=== PATIENT | male | born 1945 | race Caucasian/White ===

== ENCOUNTER → 2018-08-14 11:50 | Outpatient (CLI) | payer MEDICARE, OTHER, SELFPAY ==
--- NOTE | 2018-08-14 | DI.MRI.S_ITS ---
PROCEDURE: MR LUMBAR SPINE WO CON INDICATIONS: SPINAL STENOSIS TECHNIQUE: Noncontrast sagittal T1 spin echo and T2 fast echo, sagittal STIR, axial T1 and T2 fast spin echo through the lumbar spine. In cases with scoliosis, additional coronal T2 fast spin echo may be performed. COMPARISON: [facility], MR, L-SPINE WITHOUT CONTRAST, 06/21/2014, 10:47. [facility], CR, XR LUMBAR SPINE 2 OR 3 VIEWS, 08/05/2018, 13:12. FINDINGS: Image quality: Excellent. Alignment and Curvature: 5 lumbar type vertebral bodies are present by plain film. There is mild grade 1 retrolisthesis of L2 on L3. There is mild grade 1 anterolisthesis of L4 on L5. There is mild rightward curvature of the thoracolumbar junction and mild leftward curvature of the lower lumbar spine. Bone Marrow: Marrow is of normal overall signal. No acute vertebral body compression fractures. Spinal Cord: Conus medullaris terminates at the upper L1 level. Visualized cord demonstrates normal signal and size. Paraspinous Soft Tissues: No paravertebral masses. L1-L2: Mild disc desiccation and diffuse disc bulge. Mild facet hypertrophy bilaterally. Mild canal stenosis. Mild bilateral foraminal stenosis. L2-L3: Mild disc height loss and desiccation. Mild diffuse disc bulge. Mild bilateral facet hypertrophy. Mild canal stenosis. Mild bilateral foraminal stenosis. No change. L3-L4: Mild disc height loss and desiccation. Mild diffuse disc bulge. Congenital canal stenosis. Mild facet and ligamentum flavum hypertrophy. There is increased, moderate to severe canal stenosis. There is no change in mild bilateral foraminal stenosis. L4-L5: Mild disc height loss and desiccation. Mild diffuse disc bulge. Moderate facet hypertrophy bilaterally. Severe canal stenosis and mild bilateral foraminal stenosis is unchanged. L5-S1: Mild disc height loss and desiccation. Mild diffuse disc bulge. Bilateral facet hypertrophy. Epidural lipomatosis. Mild canal stenosis. Moderate foraminal stenosis bilaterally. No change. IMPRESSION: 1. Multilevel degenerative disc and facet disease, as well as ligamentum flavum hypertrophy. 2. Multilevel canal stenoses, worst at L4-L5, where there is severe canal stenosis. There is moderate to severe L3-L4 canal stenosis. 3. Multilevel foraminal stenoses, worst at L5-S1 bilaterally where there are moderate bilateral foraminal stenoses present. Dictated by: Steve Urbina M.D. on 08/14/2018 at 13:53 Approved by: Steve Urbina M.D. on 08/14/2018 at 14:20
== END ==
PROVIDERS: Family Provider Family Medicine; PCP Student in an Organized Health Care Education/Training Program; Visit Provider Orthopaedic Surgery
DX: M48.061 Spinal stenosis, lumbar region without neurogenic claudication (principal); M48.07 Spinal stenosis, lumbosacral region; M51.36 Other intervertebral disc degeneration, lumbar region; M51.37 Other intervertebral disc degeneration, lumbosacral region; M54.5 Low back pain
CPT/HCPCS: 72148

== ENCOUNTER → 2018-11-11 14:43 | Outpatient (CLI) | payer MEDICARE, OTHER, SELFPAY | PROVIDERS: PCP Student in an Organized Health Care Education/Training Program; Visit Provider Student in an Organized Health Care Education/Training Program | DX: E66.09 Other obesity due to excess calories (principal) | CPT/HCPCS: 36415; 83036 ==

== ENCOUNTER 2018-12-17 07:16 | Inpatient (IN) | payer MEDICARE, OTHER, SELFPAY ==
[2018-12-11 14:04] VITALS: BMI 34.9
[2018-12-17] VITALS (20 sets, daily range): BP systolic 93–161; BP diastolic 44–77; PULSE 85–109; RESP 13–98; TEMP 36.3–37; O2SAT 90–100; BMI 34.9
[2018-12-17] MEDS: LACTATED RINGERS 1,000 ML 42 ML IV ×2 (08:10→11:09)
--- NOTE | 2018-12-17 08:10 | PM.PREOP ---
Pre-operative Note Interval Note History & Physical reviewed/Exam performed by Physician: Yes Changes to H&P: No
[2018-12-17] MEDS: ALBUTEROL/IPRATROPIUM 3 ML AMPUL INH ×2 (08:14→13:00)
[2018-12-17] MEDS: CEFAZOLIN 2 GM/100 ML FROZ.PIGGY IV ×2 (08:40→17:38)
--- NOTE | 2018-12-17 09:20 | SUR.OPER ---
Prone on spine table, head in foam head support, padded chest and pelvic supports, gel pad at knees, lower legs supported by pillows; nipples, genitalia and toes free of pressure, arms secured on foam padded arm boards at <90 degrees abduction. Tape over blanket at thigh secured to table.
[2018-12-17] MEDS: BUPIVACAINE 0.25% W/ EPI VIAL 50 ML INJ (09:36)
[2018-12-17] MEDS: BUPIVACAINE LIPOSOME 266 MG/20 ML VIAL INJ (09:37)
--- NOTE | 2018-12-17 12:20 | P.OP_ITS ---
Operative Date/Time/Diagnoses Date of procedure: 12/17/18 Time of procedure: 09:18 Pre-op diagnosis: 1. L4-5, L5-S1 spinal stenosis 2. L4-5 history of laminectomy with epidural scarring 3. L4-5, L5-S1 spondylosis with radiculopathy Post-op diagnosis: same Procedure & Clinicians Procedure: 1. L4-5, L5-S1 Postero-lateral and posterior interbody fusion 2. L4-5, L5-S1 interbody cage placement. 3. L4-5, L5-S1 decompressive laminectomy with bilateral facetecomies 4. L4-5, L5-S1 Posterior segmental instrumentation 5. [place] of bone marrow from iliac crest 6. Utilization of microsurgical technique and operating microscope Same procedure as scheduled: No Indications: Patient has been having chronic back pain and worsening lumbar radiculopathy. Patient failed multiple conservative management with worsening pain weakness and numbness in her lower extremity. Patient has been having difficulty performing activity of daily living. After discussing risks benefits of treatment options, patient elected proceed with surgery. Surgeon: Lissy Calzada Deoiling Machine Operator: Peg Pineda Click Yes if Unassisted: No Anesthesia Type: General Operative Notes Closure Type: primary Specimen(s): none sent Prosthetic devices, grafts, tissues, transplants, or devices: Globus revolve screws, Rise cages Applied: catheter Estimated Blood Loss (mL): 100 Blood products transfused: none Procedure in detail: Patient was seen in the preoperative area. Risks and benefits of the surgery was discussed with the patient. Informed consent was obtained from the patient and placed in the chart. Surgical site was marked. Patient was taken to the operative room. General anesthesia was administered. Prophylactic antibiotic was given to the patient less than 30 min before the incision was made. Patient was placed into a prone position on the Oscar table. Patient's back was then prepped and draped in the sterile fashion. Time- out was performed at this time. Using AP and lateral C-arm imaging the interval between L4-S1 was identified and marked on patient's back. A 2 inch incision 2 in from midline was made on the Right side first. The fascia was incised in line with skin incision. Globus MARS retractors was placed inside the incision and docked onto the L4 and L5 lamina. Using microsurgical technique and operating microscope, a L4 and L5 laminectomy and L4-5 L5-S1 facetectomy was performed using a Kerrison rongeur. During the process of decompression more than 75% of bilateral L4-5 L5-S1 facets were removed in order to decompress the spinal canal and the lateral recess. The L4-5 L5-S1 level was grossly unstable after the decompression was completed and requiring the fusion procedure. The disc space at L4-5, L5-S1 was identified. And a total diskectomy was performed at L4-5, L5-S1 level. The endplates were decorticated using a rasp and shaver. The total diskectomy and decortication was performed at L4-5, L5-S1 level in order to to accomplish a L4- 5, L5-S1 fusion. The local bone from the laminectomy and facetectomy was saved for local bone grafting. After the total diskectomy and decortication was completed, [place] [employer] bone graft material was combined with local bone that was harvested earlier. At this time, a separate skin is incision was made over the iliac crest. A Jamshidi needle was inserted into the iliac crest through a separate skin incision. 5 cc of bone marrow aspiration was obtained through the separate skin incision using a Jamshidi needle from the iliac crest. The bone marrow aspiration was combined with local bone and the [employer]4 bone grafting material. The bone grafting material was placed into the L4-5, L5-S1 interbody space along with two cages, one expandable cage at each level. The cages were expanded to their maximum height using the torque limiting s crewdriver. At this time a mirror image incision was made on the left side. The fascia was incised in line with the skin incision. Globus MARS retractor was inserted and docked onto the L4-5, L5-S1 posterolateral gutter. Using the power drill, posterior-lateral decortication was performed at L4-5, L5-S1 level until bleeding cortical bone was identified. The remaining bone grafting material was placed into the L4-5 L5-S1 posterior lateral gutter he order to accomplish posterolateral fusion at the L4-5 L5-S1 levels. Using the double C-arm technique, pedicle screws were placed into the L4, L5, S1 pedicles bilaterally. This was done by placing the Jamshidi needle into the pedicles, then placing the guidewires over the Jamshidi needle, and finally placing the cannulated screws over the guidewires bilaterally. After the pedicle screws were placed, 2 titanium rods was locked into the heads of the pedicle screws using locking caps and torque limiting screwdriver. Total 6 pedicles screws were placed. After all the hardware was placed, and confirmed with AP and lateral C-arm imaging, the wound was then irrigated with sterile normal saline and packed with Ray-Elvin gauze for 3 min to accomplish hemostasis. After the gauze was removed the deep fascia was closed with #1 Vicryl suture. The subcutaneous layer was closed with 2-0 Vicryl. The skin was closed with skin cassie. Patient tolerated the procedure well. There were no complications. Complications: none Condition: stable Disposition: PACU Plan for aftercare: Admit to inpatient hospital
--- NOTE | 2018-12-17 12:37 | DI.RAD.S_ITS ---
PROCEDURE: XR LUMBAR SPINE 2-3V INDICATIONS: L4-5, L5-S1 TLIF TECHNIQUE: 2 views of the lumbar spine were acquired. COMPARISON: [facility], , -SPINE 2-3 VIEWS, 06/02/2014, 12:24. FINDINGS: Bones: 5 csk-lhd-jamalfa vertebrae are present. There is normal bony alignment established after discectomy and posterior fixation with transverse pedicle screws and vertical fixation rods bilaterally crossing from L4-S1. Interbody disc prosthesis devices are present at each of the 2 intervening levels. No vertebral body compression fractures. No suspicious bony lesions. Soft tissues: Overlying bowel gas pattern is normal. No suspicious soft tissue calcifications. IMPRESSION: Normal alignment established after L4-5 and L5-S1 posterior fusion with interbody disc cage prosthesis devices placed at these 2 levels. Dictated by: Alex More M.D. on 12/17/2018 at 12:55 Approved by: Alex More M.D. on 12/17/2018 at 12:56
[2018-12-17] MEDS: HYDROMORPHONE 2 MG INJ 0.5 MG IV (13:18)
--- NOTE | 2018-12-17 14:05 | SUR.PHASEI ---
Pt experiencing mild expiratory wheezing heard over upper lung casiano with auscultation. Pt is not in distress, breathing is unlabored, even and regular. O2 [id number]% on 4 L NC. Pt to transfer to room 229. Spoke to Dr Engle prior to transfer to update on respiratory status and assessment. Orders for respiratory therapy consult and ok to transfer pt.
--- NOTE | 2018-12-17 14:20 | SUR.PHASEI ---
Pt transferred to room 229 via bed with all belongings. Last vital signs stable. Report given to OMER Quinn prior to transfer. Cheyenne at bedside upon arrival to 229. Assessed pt's dressing and overall status with Cheyenne at bedside.
[2018-12-17] MEDS: SODIUM CHLORIDE 0.9% 1,000 ML 100 ML IV (15:17)
--- NOTE | 2018-12-17 15:18 | PC.NURSE ---
1415 Pt arrived via bed from PACU. Pt awake, alert, oriented X4. Diaz in place. SL to bilat hands. Drsg to back cdI. SCDs footies on. Pt able to do ankle waves. at bedside, vs wnl except ht rate 100. lungs clear. 1430 IVF NS @ 100 hung. Pt denies pain.
--- NOTE | 2018-12-17 16:02 | PT.IIE ---
Current Diagnoses Spondylolisthesis, lumbar region (12/17/18) Other spondylosis with radiculopathy, lumbar region (12/17/18) Spinal stenosis, lumbar region with neurogenic claudication (12/17/18) Postlaminectomy syndrome, not elsewhere classified (12/17/18) Surgery Performed Operation Date: 12/17/18 08:45 Actual Procedures p L4-5,L5-S1 TLIF w/Posterior Instru. - Lissy Calzada MD Surgical History (Last Updated 12/11/18 @ 14:25 by Radha Kelsey RN) H/O vasectomy (Acute) History of nasal surgery (Acute) Hx of tonsillectomy (Acute) Hx of appendectomy (Resolved) Hx of colonoscopy with polypectomy (Resolved 01/2013) Hx of rotator cuff surgery (Resolved ~2004) Hx of sinus surgery (Resolved) Status post cholecystectomy (09/30/13) Medical History (Last Updated 12/11/18 @ 14:31 by Radha Kelsey RN) ASD (atrial septal defect) (Acute) Compression fracture of L1 lumbar vertebra (Acute 09/12/18) Easy bruisability (Acute) Former smoker (Acute) HTN (hypertension) (Acute) Pneumonia (Acute) Allergic rhinitis (Chronic) Asthma (Chronic) Diabetes (Chronic) GERD (gastroesophageal reflux disease) (Chronic) Hypertension (Chronic) Recurrent sinusitis (Chronic) Shoulder pain (Chronic ~07/2017) Colon polyps (Resolved ~01/2013) Renal cyst (Resolved) Physical Therapy Inpatient Evaluation/Re-Eval M1 PT/OT-IP Prior Functional Status Start: 12/17/18 17:32 Freq: NEEDED Status: Active Protocol: Document 12/17/18 16:02 AB (Rec: 12/17/18 17:45 AB [id number]) Medical Review Prior Functional Status Medical History Reviewed Yes Communication able to make needs known Mobility and Gait pt stated that he is independent with all mobilities and ambulation without AD Social History Household Members spouse Living Arrangements House Number of Floors (Floors) One Floor Number of Stairs To Enter/Railing? 3 steps to enter with R rail ascending Home Environment Standard Height Toilet Walk in Shower Built-In Shower Seat Home Equipment Front Wheel Walker Hand Held Shower Employment Status Retired M2 PT-IP Current Condition Start: 12/17/18 17:32 Freq: NEEDED Status: Active Protocol: Document 12/17/18 16:02 AB (Rec: 12/17/18 17:45 AB [id number]) Physical Therapy Current Condition Current Condition Evaluation Date 12/17/18 Treatment Diagnosis s/p L4-5, L5S1 post-lat/hydrologic modeler fusion/lami; difficulty in walking Onset Date 12/17/18 Precautions Lumbar Precautions Log Roll No Twisting Limit Bending Lifting Restriction of 10 lbs Gait Belt above Incisional Area Other Precautions O2 sat: 95-99% currently uses 2 1/2L/min; at room air: O2 sat goes down to 87% M3 PT-IP Subjective Start: 12/17/18 17:32 Freq: NEEDED Status: Active Protocol: Document 12/17/18 16:02 AB (Rec: 12/17/18 17:45 AB [id number]) Subjective Physical Therapy Visit Type Type Initial Evaluation Visit Start Time 16:02 Visit Stop Time 17:08 Total Visit Minutes 66 Number of VASCULAR NEUROLOGIST Visits 0 Physical Therapy Visit Comments Patient Comments I want go get out of bed Patient Goals to go home Therapy Pain Assessment Pain When Pain Assessed At Rest Pain Present Pain Present Pain Reported Location Lower Back Intensity 4 Scale Used Numeric (1 - 10) Pain Management Techniques Apply Cold Re-positioning Timing of Activity with Medications M4 PT-IP Mobility and Gait Start: 12/17/18 17:32 Freq: NEEDED Status: Active Protocol: Document 12/17/18 16:02 AB (Rec: 12/17/18 17:45 AB [id number]) PT-Bed Mobility Assessment Rolling Type of Rolling Log Rolling Level of Assist Maximal Assistance 1 Person Assistance Supine to Sit Supine to Sit Maximum Assistance Total Assistance Scooting Scooting to Edge of Bed Maximum Assistance PT-Transfer Assessment Sit to and From Stand Sit to and from Stand Moderate Assistance 1 Person Assistance Equipment Transfer Assistive Device Bed Rail Front Wheeled Walker Orthotic/Prosthetic Devices or Brace: No Transfers Transfer Destination Chair Transfer Technique pt ambulated using FWW Transfer Ability Level of Assist Moderate Assistance Gait Assessment Gait Gait Assistance Required: Moderate Assistance Distance (Feet) 5 Able to Maintain Weight Bearing Status Yes During Gait Assistive Devices Assistive Device Gait Belt Front Wheeled Walker Orthotic/Prosthetic Devices or Brace: No Gait Deviations General Gait Pattern Antalgic Decreased Stride Length Decreased Feet Clearance Factors Limiting Gait Function Factors Limiting Gait Function Decreased Activity Tolerance Decreased Strength Limited Range of Motion Pain Poor Balance Poor Safety Awareness Comments Gait Comments pt complete ambulation using FWW 5 ft forward and then 5 ft backwards mod A and cues. PT-Balance Assessment Sitting Balance and Reactions Static Sitting Balance Ability Good Dynamic Sitting Balance Ability Good Standing Balance and Reactions Static Standing Balance Ability Fair Dynamic Standing Balance Ability Fair Device Used FWW M5 PT-IP Objective Assessments Start: 12/17/18 17:32 Freq: NEEDED Status: Active Protocol: Document 12/17/18 16:02 AB (Rec: 12/17/18 17:45 AB [id number]) Orientation Orientation/Cognition Level of Alertness Alert Orientation Name Age Birthday Month Date Year Day of Week Place Situation Language Function Ability Hard of Hearing Safety Awareness Decreased Safety Awareness Memory Description Short Term Impaired Gross Range of Motion Lower Extremity ROM Assessment Within Functional Limits Strength Lower Extremity Strength Assessment Right Impaired Knee 3+/5 Coordination Assessment Gross Coordination Gross Coordination WNL Sensation Assessment Sensation Gross Sensation WNL Muscle Tone Muscle Tone WNL Yes M6 PT-IP Treatment Start: 12/17/18 17:32 Freq: NEEDED Status: Active Protocol: Document 12/17/18 16:02 AB (Rec: 12/17/18 17:45 AB [id number]) Physical Therapy Treatment Education Education Provided Precautions Weight Bearing Status Post-Op Packet Safety M7 PT-IP Assessment and Plan Start: 12/17/18 17:32 Freq: NEEDED Status: Active Protocol: Document 12/17/18 16:02 AB (Rec: 12/17/18 17:45 AB [id number]) PT Summary Assessment and Plan Potential Rehabilitation Potential Good Status of Condition at Evaluation Stable Summary Impairments Pain ROM Strength Balance Tone Cognition Bed Mobility Transfers Gait Activity Tolerance Assessment Summary pt requiring max A with bed mobility and mod A with transfers/ambulation. pt plans to go home with spouse to assist him. caregiver training will be conducted and stair climbing training as well prior to d/c home when appropriate. Goals Bed Mobility Goal Standby Assistance Transfer Goal Standby Assistance Front Wheeled Walker Gait Goal Standby Assistance Front Wheel Walker Gait Distance 200 Days to Meet Goals 5 Frequency of Treatment Frequency Of Treatment Twice a Day Treatment Plan Physical Therapy Treatment Plan Bed Mobility Training Transfer Training Gait Training Therapeutic Exercise Balance Retraining Post Op Education Discharge Planning Hot or Cold Pack Neuromuscular Re-ed Coordination Retraining Manual Therapy Other Recommendations and Next Treatment caregiver training, bed Focus mobility, ambulation, stair climbing Recommendations To Nursing Amount of Assist Needed 1 Person Assist Discharge Recommendations PT Discharge Recommendations Home with Assistance
--- NOTE | 2018-12-17 16:59 | PC.NURSE ---
Addendum entered by Yolanda Guan R.N. 12/17/18 22:43: Pt up in room w/o incidence. Dsg CDI. IVF continue a per orders. Dilaudid po for discomfort at 2100 w/good relief. HS CBG = 148, no coverage required. Stable post op course. Continue w/plan of care. Original Note: Pt sitting in chair. Denies discomfort at thsit time. Lungs diminished at bases, SpO2 95% RA. Dsg to back CDI, IV NS infusing @ 100cc/hr via pump w/o incidense. IV site left hand intact/patent. Call light w/in reach, chair alarm on for pt safety.
[2018-12-17] MEDS: LISINOPRIL 20 MG TABLET 40 MG PO (20:47)
[2018-12-17] MEDS: SENNOSIDES 8.6 MG TABLET 17.2 MG PO (20:47)
[2018-12-17] MEDS: DOCUSATE 100 MG CAPSULE PO (20:47)
[2018-12-17] MEDS: METFORMIN HCL 500 MG TABLET 1000 MG PO (20:48)
[2018-12-17] MEDS: HYDROMORPHONE 2 MG TABLET 4 MG PO (21:07)
[2018-12-18] MEDS: CEFAZOLIN 2 GM/100 ML FROZ.PIGGY IV (01:08)
[2018-12-18] MEDS: hydrOXYzine pamoate 25 MG CAPSULE PO ×2 (01:25→07:55)
[2018-12-18] MEDS: SODIUM CHLORIDE 0.9% 1,000 ML 100 ML IV (02:38)
--- NOTE | 2018-12-18 02:40 | PC.NURSE ---
NOC SHIFT AGITATION/SHAKING: Around 0115 this RN called to patient room to assist patient in changing of positions. Patient stating I just need to get up. Patient transferred from bed to chair with SBA for Drain/IV pump assistance. Patient denied pain but seemed very agitated and bothered. Patient hands shaking uncontrollably, patient stated that he sometimes does this at home. Patient's blood sugar checked with result of 117. Patient stated that he didn't eat much dinner because he didn't like the food. Patient offered egg salad sandwich which patient accepted and ate quickly. Patient stated that he didn't realize he had been so hungry. Patient also given vistaril at this time to help with the tense feeling he had. Patient had complained about muñoz catheter and this RN offered to remove catheter if patient wished. Patient decided he wanted to keep catheter in till safety trainer so he wouldn't have to get up to void this night. Patient rested in chair for 45 minutes and called this RN to help patient return to bed per patient request. Patient stating that he felt better and wanted to lie down. Patient now resting comfortably in bed at this time. Patient's at bedside. No acute distress, Respirations even and unlabored. Will continue to monitor.
[2018-12-18] MEDS: HYDROMORPHONE 2 MG TABLET 4 MG PO ×2 (03:08→07:55)
[2018-12-18 04:09] VITALS: BP 133/50; PULSE 112; RESP 16; TEMP 36.9; O2SAT 97
--- NOTE | 2018-12-18 04:53 | PC.NURSE ---
Patient moved to [place] after bring found standing up in room without calling for assistance. Bed alarm on, chair alarm in room for when patient needs to be in chair. Patient not using call light states he does things himself usually.
[2018-12-18 05:48] LABS: Hematocrit 32.8 % (41-53); Hemoglobin 10.5 g/dL (13.5-17.5)
[2018-12-18] MEDS: PANTOPRAZOLE 20 MG TABLET PO (06:31)
--- NOTE | 2018-12-18 07:29 | PM.PNPO.1 ---
Exam Vital Signs (past 8 hours): - 12/17/18 23:55 12/18/18 04:09 Temperature 98.0 F 98.4 F Pulse Rate 99 H 112 H Respiratory Rate 16 16 Blood Pressure 133/50 L Pulse Oximetry 100 97 Oxygen Delivery Method Nasal Cannula Oxygen Flow Rate 2 Objective Labs Result Diagrams: 12/18/18 05:02 Labs: Laboratory Results - last 24 hr 12/18/18 05:02 Hgb 10.5 L Hct 32.8 L Assessment & Plan Post-op Postoperative Procedures Operation Date: 12/17/18 08:45 Actual Procedures Side Surgeon p L4-5,L5-S1 TLIF w/Posterior Instru. Lissy Calzada MD Quality VTE Deep Vein Thrombosis/Pulmonary Embolism Present on Admission: No
[2018-12-18] MEDS: METFORMIN HCL 500 MG TABLET 1000 MG PO (07:56)
[2018-12-18] MEDS: DOCUSATE 100 MG CAPSULE PO (07:56)
[2018-12-18] MEDS: INSULIN ASPART 100 UNIT/ML INSULN PEN SUBCUT ×3 (07:57→16:47)
[2018-12-18 08:00] VITALS: BP 121/86; PULSE 116; RESP 18; O2SAT 96
--- NOTE | 2018-12-18 08:41 | PC.NURSE ---
Addendum entered by Raul Garcia R.N. 12/18/18 15:28: report given to OMER Nunez who will follow up with ortho pa and request ABG per this RN and RT recommendation. of note, patient's right arm is swollen, erythemic and blanchable, slightly warm to touch. denies pain. states has been that way since end of when he fell. states the doctors have been aware of it, and no treatment or concerns noted. reported same to aguilar hernandez RN to follow up on. Original Note: Addendum entered by Raul Garcia R.N. 12/18/18 14:45: drsg changed to coversite x2. incisions w/ cassie dry and intact. no swelling or erythema. Original Note: Addendum entered by Raul Garcia R.N. 12/18/18 14:33: faxed msg to ortho PA in OR requesting return call r/t desat's w/ rest as low as 85%. RT aware. 1l/nc 95% at rest. awaiting response from PA Original Note: Addendum entered by Raul Garcia R.N. 12/18/18 12:56: sat 90% on ra. patient refuses oxygen. Original Note: PA NOTIFIED HR 117 AFTER TRANSF FROM BED TO RECLINER WITH WHEEZES AND EXERT. SOB. RT CONSULT ORDERED.
--- NOTE | 2018-12-18 10:13 | CM.DANOTE ---
DCP: Case received, EMR reviewed and met with patient. Introduced self and role. DCP template completed with information currently available. Patient is a 73 year old male who admitted yesterday morning to the care of the surgical team. PCP: Dr. Dunn Payer: confirmed: Medicare/[employer]. Patient came to hospital for surgical procedure. Had Posteo-lateral interbody fusion. Patient's was also in room, her name is Elisha. Patient stated that he had his original surgery at [facility] a few years ago, but they had to go in and repair some bones. Patient has not yet been up with physical therapy, but he is hopeful to go home today. Lives with his spouse in [place]. He stated that he is independent at home, drives, and had not needed to use a walker. P: DCP to continue to follow. Will see how he does with physical therapy before going home. Radha Holliday RN/Branch Billing Payroll Clerk
--- NOTE | 2018-12-18 10:33 | PT.IPTN ---
Current Diagnoses Spondylolisthesis, lumbar region (12/17/18) Other spondylosis with radiculopathy, lumbar region (12/17/18) Spinal stenosis, lumbar region with neurogenic claudication (12/17/18) Postlaminectomy syndrome, not elsewhere classified (12/17/18) Surgery Performed Operation Date: 12/17/18 08:45 Actual Procedures p L4-5,L5-S1 TLIF w/Posterior Instru. - Lissy Calzada MD Physical Therapy Treatment Note M2 PT-IP Current Condition Start: 12/17/18 17:32 Freq: NEEDED Status: Active Protocol: Document 12/17/18 16:02 AB (Rec: 12/17/18 17:45 AB [id number]) Physical Therapy Current Condition Current Condition Evaluation Date 12/17/18 Treatment Diagnosis s/p L4-5, L5S1 post-lat/delinquent account clerk fusion/lami; difficulty in walking Onset Date 12/17/18 Precautions Lumbar Precautions Log Roll No Twisting Limit Bending Lifting Restriction of 10 lbs Gait Belt above Incisional Area Other Precautions O2 sat: 95-99% currently uses 2 1/2L/min; at room air: O2 sat goes down to 87% M3 PT-IP Subjective Start: 12/17/18 17:32 Freq: NEEDED Status: Active Protocol: Document 12/18/18 10:33 AB (Rec: 12/18/18 12:26 AB [id number]) Subjective Physical Therapy Visit Type Type Treatment Note Visit Start Time 10:33 Visit Stop Time 11:27 Total Visit Minutes 55 Number of SWITCHING OPERATOR Visits 0 Physical Therapy Visit Comments Patient Comments pt agreeable to do PT Therapy Pain Assessment Pain When Pain Assessed During Mobility Pain Present Pain Present Pain Reported Location Lower Back Scale Used pain scale not stated Pain Management Techniques Re-positioning Timing of Activity with Medications M4 PT-IP Mobility and Gait Start: 12/17/18 17:32 Freq: NEEDED Status: Active Protocol: Document 12/18/18 10:33 AB (Rec: 12/18/18 12:26 AB [id number]) PT-Bed Mobility Assessment Rolling Type of Rolling Log Rolling Level of Assist Standby Assistance Supine to Sit Supine to Sit Maximum Assistance 1 Person Assistance Sit to Supine Sit to Supine Moderate Assistance 1 Person Assistance Scooting Scooting to Edge of Bed Minimal Assistance PT-Transfer Assessment Sit to and From Stand Sit to and from Stand Minimal Assistance 1 Person Assistance Use of Upper Extremities Equipment Transfer Assistive Device Gait Belt Front Wheeled Walker Orthotic/Prosthetic Devices or Brace: No Transfers Transfer Destination Bed Chair Transfer Technique Stand Step Pivot Transfer Ability Level of Assist Contact Guard Assistance 1 Person Assistance Comments Mobility Comments Pt sitting on chair. RT came in. O2 checked and O2 sat at 85-87% at room air. O2 given 2L/min. O2 sat increased to 90%. O2 sat prior to mobility with 2l/min 94% but decreased to 87% - 89% with ambulation. informed nurse and agreed to increase O2 to 3L/min. caregiver training conducted with spouse assisting pt. pt completed sit <>stand from chair x 2 reps with cues to techniques. educated spouse on how to use safety belt and how to assist pt. pt completed bed mobility sit to supine mod A and cues. spouse assisted pt with elevating LE up in bed. pt completed supine to sit max A and max cues. spouse assist pt with bed mobility but requires further caregiver training. Gait Assessment Gait Gait Assistance Required: Contact Guard Assist Distance (Feet) 150 Able to Maintain Weight Bearing Status Yes During Gait Assistive Devices Assistive Device Gait Belt Front Wheeled Walker Orthotic/Prosthetic Devices or Brace: No Gait Deviations General Gait Pattern Antalgic Decreased Stride Length Decreased Feet Clearance Factors Limiting Gait Function Factors Limiting Gait Function Decreased Activity Tolerance Decreased Strength Limited Range of Motion Pain Poor Balance Poor Safety Awareness Comments Gait Comments pt ambulated in the hallway with spouse assisting. M5 PT-IP Objective Assessments Start: 12/17/18 17:32 Freq: NEEDED Status: Active Protocol: Document 12/17/18 16:02 AB (Rec: 12/17/18 17:45 AB [id number]) Orientation Orientation/Cognition Level of Alertness Alert Orientation Name Age Birthday Month Date Year Day of Week Place Situation Language Function Ability Hard of Hearing Safety Awareness Decreased Safety Awareness Memory Description Short Term Impaired Gross Range of Motion Lower Extremity ROM Assessment Within Functional Limits Strength Lower Extremity Strength Assessment Right Impaired Knee 3+/5 Coordination Assessment Gross Coordination Gross Coordination WNL Sensation Assessment Sensation Gross Sensation WNL Muscle Tone Muscle Tone WNL Yes M6 PT-IP Treatment Start: 12/17/18 17:32 Freq: NEEDED Status: Active Protocol: Document 12/18/18 10:33 AB (Rec: 12/18/18 12:26 AB [id number]) Physical Therapy Treatment Education Education Provided Precautions Safety M7 PT-IP Assessment and Plan Start: 12/17/18 17:32 Freq: NEEDED Status: Active Protocol: Document 12/18/18 10:33 AB (Rec: 12/18/18 12:26 AB [id number]) PT Summary Assessment and Plan Potential Rehabilitation Potential Fair Summary Impairments Pain ROM Strength Balance Coordination Sensation Tone Cognition Bed Mobility Transfers Gait Activity Tolerance Progress Towards Goals Slow Progress due to Activity Tolerance Assessment Summary Pt progressing slowly but continues to require assistance with mobility. conducted caregiver training but further caregiver training needed for a safe d/c. pt also has decrease in O2 sat with activity and requiring use of O2 at this time. stair climbing training needs to be completed prior to d/c. Goals Bed Mobility Goal Standby Assistance Transfer Goal Standby Assistance Front Wheeled Walker Gait Goal Standby Assistance Front Wheel Walker Gait Distance 200 Days to Meet Goals 5 Frequency of Treatment Frequency Of Treatment Twice a Day Treatment Plan Physical Therapy Treatment Plan Bed Mobility Training Transfer Training Gait Training Therapeutic Exercise Balance Retraining Post Op Education Discharge Planning Hot or Cold Pack Neuromuscular Re-ed Coordination Retraining Manual Therapy Other Recommendations and Next Treatment caregiver training, bed Focus mobility, ambulation, stair climbing Recommendations To Nursing Amount of Assist Needed 1 Person Assist Discharge Recommendations PT Discharge Recommendations Home with Assistance
--- NOTE | 2018-12-18 11:16 | P.DS_ITS ---
History of Present Illness Date Patient Seen: 12/18/18 Chief complaint: [id number] Narrative: Patient seen bedside s/p L4-5, L5-S1 TLIF by Dr. Calzada on POD #1. Doing well, pain is controlled and muñoz has been removed. He has not urinated it. He is having some mild wheezing but this is baseline for him with his COPD. Improved with use of albuterol HFA. He has not worked with PT but has been up to his chair this morning. He would like to go home today. Discharge Providers Date of admission: 12/17/18 07:16 Discharge Date: 12/18/18 Primary care physician: Dao Mason MD Consults: 12/17/18 14:08 Consult to Respiratory Therapy Evaluate & Treat Comment: Physician Instructions: Evaluate and treat 12/17/18 14:09 Consult to Occupational Therapy Evaluate & Treat Comment: Physician Instructions: Evaluate and treat Consult to Physical Therapy Evaluate & Treat Comment: Physician Instructions: Evaluate and Treat 12/18/18 07:52 Consult to Respiratory Therapy Evaluate & Treat Comment: wheezing; copd; eval for nebs Physician Instructions: Evaluate and treat Discharge provider: Rosa Soto PA-C Summary Discharge Diagnosis: 1. L4-5, L5-S1 spinal stenosis 2. L4-5 history of laminectomy with epidural scarring 3. L4-5, L5-S1 spondylosis with radiculopathy 4. Post-operative anemia due to acute blood loss-stable Hospital Course: Patient admitted to the hospital s/p L4-5, L5-S1 TLIF with Dr. Calzada on 12/17/18. Patient tolerated the procedure well with no major complications. They were transferred to the acute care floor where they were placed on the standard lumbar fusion post-operative pathway and protocol. Patient had mild postoperative anemia with a Hgb of 10.2 on POD #1. This was due to expected blood loss intraoperatively. He did not have any signs/symptoms of orthostatic h ypotension, and denied being lightheaded. They were seen by physical therapy who recommended that they be discharged home. They were stable and ready for discharge on 12/18/18. Status at Discharge Cognitive/behavioral status at discharge: oriented Functional status at discharge: uses cane/walker Overall status at discharge: patient is progressing back to baseline Time Spent with Patient Less than 30 minutes Exam Vital Signs (past 8 hours): - 12/18/18 04:09 12/18/18 08:00 Temperature 98.4 F Pulse Rate 112 H 116 H Respiratory Rate 16 18 Blood Pressure 133/50 L 121/86 Pulse Oximetry 97 96 Oxygen Delivery Method Room Air Oxygen Flow Rate 2 Narrative Exam Narrative: Well-developed, well-nourished, no acute distress. Alert and oriented to person, place, and time. Dressing on lumbar spine is clean, dry, and intact with no signs of drainage. Minimal erythema and generalized swelling around the surgical site. Neurovascularly intact in bilateral lower extremities with soft and compressible calves. Range of motion intact bilateral lower extremities. Mild inspiratory wheeze heard that improved with albuterol HFA administration. Objective Labs Result Diagrams: 12/18/18 05:02 Labs: Laboratory Results - last 24 hr 12/18/18 05:02 Hgb 10.5 L Hct 32.8 L Discharge Plan Discharge Plan Patient Disposition: Home Discharge comment: d/c after cleared by PT, urinating, and pain is controlled. Discharge Med Rec/Prescriptions Prescriptions: New acetaminophen 325 mg Tablet 650 mg PO Q6HR PRN (Reason: Pain, Mild (1-3)) Qty: 0 RF: 0 docusate sodium 100 mg Capsule 100 mg PO BID Qty: 0 RF: 0 hydroxyzine pamoate 25 mg Capsule 25 mg PO Q4HR PRN (Reason: Nausea And Vomiting) Qty: 50 RF: 0 hydromorphone [Dilaudid] 2 mg tablet 2 mg PO Q4-6H PRN (Reason: pain) Qty: 40 RF: 0 Continued albuterol sulfate [Proventil HFA] 90 mcg/actuation HFA aerosol inhaler 1 puff INHALATION QID PRN PRN (Reason: shortness of breath) Qty: 3 RF: 5 Glucose: Home Monitor Q DAY Qty: 1 RF: 0 Test Strips - Freestyle BID Qty: 100 RF: 3 metformin 1,000 mg tablet 1,000 mg PO BID Qty: 180 RF: 1 omeprazole 20 mg tablet,delayed release (DR/EC) 20 mg PO QDAY Qty: 90 RF: 1 Test Strips - Freestyle See Rx Instructions .ROUTE BID Qty: 100 RF: 3 docusate calcium 240 mg capsule 240 mg PO DAILY Qty: 90 RF: 1 lisinopril [Zestril] 40 mg tablet 40 mg PO BEDTIME RF: 0 loratadine 10 mg tablet 10 mg PO QDAYP PRN (Reason: Allergies) RF: 0 Discontinued aspirin 81 mg tablet,delayed release (DR/EC) 81 mg PO QDAY Qty: 90 RF: 1 naproxen sodium [Aleve] 220 mg Capsule 220 mg PO DAILY PRN (Reason: pain) RF: 0 Follow up/Referrals: Lissy Calzada MD [Physician] - (Follow up in 10-14 days at your previously scheduled post-op appointment.) Provider Discharge Instructions Diet: Diet as Tolerated Activity: Weightbearing as tolerated, no bending, lifting greater than 5 lbs, or twisting. Cold/Heat Therapy: Apply ice to affected area for 20 minutes at a time at least hourly while awake. Skin/Wound/Dressing Care Report to your healthcare provider any signs of infection, such as:: chills, f ever, night sweats, increased pain, unusual drainage and unusual redness Dressing: Keep dressing clean, dry, and intact. May shower with it in place but no soaking. Visit Report/Discharge Packet Instructions: DI for Transforaminal Lumbar Interbody Fusion Stand Alone Forms: Surgery Discharge Discharge Data Primary Care Provider: Dao Mason Attending Provider: Lissy Calzada Admit Date/Time: 12/17/18 07:16 Quality VTE Deep Vein Thrombosis/Pulmonary Embolism Present on Admission: No
--- NOTE | 2018-12-18 12:10 | OT.IP.EVAL ---
Current Diagnoses Spondylolisthesis, lumbar region (12/17/18) Other spondylosis with radiculopathy, lumbar region (12/17/18) Spinal stenosis, lumbar region with neurogenic claudication (12/17/18) Postlaminectomy syndrome, not elsewhere classified (12/17/18) Surgery Performed Operation Date: 12/17/18 08:45 Actual Procedures p L4-5,L5-S1 TLIF w/Posterior Instru. - Lissy Calzada MD Past Medical History (Last Updated 12/11/18 @ 14:31 by Radha Kelsey RN) ASD (atrial septal defect) (Acute) Compression fracture of L1 lumbar vertebra (Acute 09/12/18) Easy bruisability (Acute) Former smoker (Acute) HTN (hypertension) (Acute) Pneumonia (Acute) Allergic rhinitis (Chronic) Asthma (Chronic) Diabetes (Chronic) GERD (gastroesophageal reflux disease) (Chronic) Hypertension (Chronic) Recurrent sinusitis (Chronic) Shoulder pain (Chronic ~07/2017) Colon polyps (Resolved ~01/2013) Renal cyst (Resolved) Surgical History (Last Updated 12/11/18 @ 14:25 by Radha Kelsey RN) H/O vasectomy (Acute) History of nasal surgery (Acute) Hx of tonsillectomy (Acute) Hx of appendectomy (Resolved) Hx of colonoscopy with polypectomy (Resolved 01/2013) Hx of rotator cuff surgery (Resolved ~2004) Hx of sinus surgery (Resolved) Status post cholecystectomy (09/30/13) Occupational Therapy Inpatient Evaluation/Re-Eval M1 PT/OT-IP Prior Functional Status Start: 12/17/18 17:32 Freq: NEEDED Status: Active Protocol: Document 12/18/18 12:10 SANDY (Rec: 12/18/18 18:16 SANDY [id number]) Medical Review Prior Functional Status Medical History Reviewed Yes Diet/Fluid Consistency Regular Communication WNL Mobility and Gait Pt states that he is independent with all mobilities and ambulation. Activities of Daily Living and IADL's Pt states he was independent with all self care but limited by low back pain. does all IADLS. Pt drives when feeling well. reports pt has good memory at baseline. Social History Household Members spouse Living Arrangements House Number of Floors (Floors) One Floor Number of Stairs To Enter/Railing? 3 with R rail ascending Home Environment Standard Height Toilet Walk in Shower Built-In Shower Seat Home Equipment Front Wheel Walker Hand Held Shower Employment Status Retired M2 OT-IP Current Condition Start: 12/18/18 17:55 Freq: Status: Active Protocol: Document 12/18/18 12:10 PJM (Rec: 12/18/18 18:16 PJM [id number]) Occupational Therapy Current Condition Current Condition Evaluation Date 12/18/18 Treatment Diagnosis decreased self care, mobility s/p L4-S1 PLIF Diagnosis Onset Date 12/17/18 Post Operative Precautions Lumbar Precautions Log Roll No Twisting Limit Bending Lifting Restriction of 10 lbs Gait Belt above Incisional Area M3 OT- IP Subjective and Pain Start: 12/18/18 17:55 Freq: Status: Active Protocol: Document 12/18/18 12:10 PJM (Rec: 12/18/18 18:16 PJM [id number]) OT- Subjective Occupational Therapy Visit Type Type Initial Evaluation Visit Start Time 11:15 Visit Stop Time 12:10 Total Visit Minutes 55 Notes Pt's here for education this session. Occupational Therapy Visit Comments Patient Comments I am not usually this sleepy . It's the pain medicine. Patient/Caregiver Goals to go home today OT Pain Assessment Pain When Pain Assessed After Treatment Pain Present Pain Present Pain Reported Location Lower Back Intensity 2 Scale Used Numeric (1 - 10) Description Aching Acute Management Techniques Distraction Re-positioning Timing of Activity with Medications M4 OT- IP ADL's Start: 12/18/18 17:55 Freq: Status: Active Protocol: Document 12/18/18 12:10 PJM (Rec: 12/18/18 18:16 PJM [id number]) OT [id number] General Evaluation Self-Feeding Ability Independent OT ADL-Grooming Comments OT Grooming Comments provided education re; body mechanics OT ADL-Oral Care Comments Oral Care Comments provided education re; body mechanics OT ADL-Dressing General Eval Upper Body Dressing Ability Minimal Assistance Lower Body Dressing Ability Minimal Assistance Areas Needing Assistance Pull-Over Shirt Pants/Shorts Socks Shoes Assistive Devices Dressing Assistive Devices Long Handled Shoe [employer] Planner Sock Aid Comments OT Dressing Comments Pt needs min assist with donning shirt due to BUE IV sites and to use unfamiliar lower body dressing equipt after demonstration/practice. verbalizes good understanding of all education and can assist pt PRN at home . Provided health and safety inspector, sock aid and long shoe horn at pt/' s request. OT ADL-Toileting Comments OT Toileting Comments did not occur this session; provided education re: body mechanics OT ADL-Bathing Comments OT Bathing Comments pt declines to shower; will assist pt PRN at home; provided long bath sponge M5 OT- IP IADL's Start: 12/18/18 17:55 Freq: Status: Active Protocol: Document 12/18/18 12:10 PJM (Rec: 12/18/18 18:16 PJM [id number]) OT-Instrumental Activities of Daily Living Deficits IADL Deficits Identified Deficits Home Safety Awareness Awareness of Need for Assistance at Home Good Awareness Medication Management Medication Management Caregiver Provides Supervision Medication Management Comments will supervise PRN Money Management Money Management No Deficits Identified Meal Preparation Meal Preparation Caregiver Provides Assist Meal Preparation Comments does all meal prep at home Wallpaper Hanger Helper Wallpaper Hanger Helper Caregiver Provides Assist Wallpaper Hanger Helper Comments does all material mover at home Driving Driving Caregiver Provides Assist Driving Comments to assist until pt able M6 OT- IP Functional Cognition Start: 12/18/18 17:55 Freq: Status: Active Protocol: Document 12/18/18 12:10 PJM (Rec: 12/18/18 18:16 PJ [id number]) Cognitive Factors Limiting Selfcare Function Cognitive Ability Level of Alertness Drowsy Patient Orientation Month Date Year Place Attention Span Ability Capable of Focused Attention Unable to Sustain Attention Ability to Follow Commands Able to Follow One Step Commands Memory Description Short Term Impaired Safety Awareness Decreased Ability to Apply Precautions Problem Solving Ability Needs Assist to Identify Solutions Cognitive Comments Cognitive Assessment Comments Pt drowsy from pain meds and states this is his usual reaction. Discussed with RN who will decrease pain meds. Pt much more alert in later PM when therapist returned to room to check on d/c plan. reports pt has good memory and is very sharp when not on pain meds. OT- Vision and Hearing OT- Hearing Assessment OT- Hearing Assessment Right Ear Impaired Left Ear Impaired OT- Vision Assessment Visual Acuity WFL Glasses All The Time Vision Assessment Comments Pt denies any recent changes. M7 OT- IP Mobility and Balance Start: 12/18/18 17:55 Freq: Status: Active Protocol: Document 12/18/18 12:10 PJM (Rec: 12/18/18 18:16 PJ [id number]) OT-Transfer Assessment Sit to and From Stand Sit to and from Stand Minimal Assistance Technique Transfer Destination Chair Devices Transfer Assistive Devices Gait Belt Front Wheeled Walker Comments Mobility Comments Pt tends to lean back when first arising. aware and able to assist pt appropriately with balance when standing for lower body clothing management. OT- Gait Assessment Comments Gait Ability Comments see P.T. notes OT- Balance Assessment Sitting Balance and Reactions Static Sitting Balance Ability Good Dynamic Sitting Balance Ability Fair Standing Balance and Reactions Static Standing Balance Ability Good Dynamic Standing Balance Ability Fair Comments Other Balance Tests/Deviations/Treatment during dressing tasks : M8 OT- IP Objective Assessments Start: 12/18/18 17:55 Freq: Status: Active Protocol: Document 12/18/18 12:10 PJM (Rec: 12/18/18 18:16 PJM [id number]) OT Gross Range of Motion Upper Extremity Range of Motion Assessment Within Functional Limits ROM Impairments B shoulder pain reported, but WFL for self care OT Strength Upper Extremity Strength Assessment Within Functional Limits OT- Coordination Assessment Comments Coordination Comments WFL for self care OT-Muscle Tone Assessment Muscle Tone WNL Yes OT Sensation Assessment Comments Summary Comments Pt denies deficits Edema Edema Absent M9 OT- IP Assessment and Plan Start: 12/18/18 17:55 Freq: Status: Active Protocol: Document 12/18/18 12:10 PJM (Rec: 12/18/18 18:16 PJM [id number]) OT Summary Assessment and Plan Potential Rehabilitation Potential Good Analytic Complexity at Evaluation Low Summary OT Impairments Balance Functional Cognition Functional Mobility Dressing Toileting Bathing Toilet Transfers Shower Transfers Progress Towards Goals Safe For Discharge Goals Met Assessment Summary Low complexity OT assessment and all OT education completed with pt and re: lumbar spine precautions, body mechanics, posture, chair selection, adapted ADL techniques, bathroom safety equipment, and car transfers. Pt drowsy this session requiring repetition of information and appeared over sedated. Discussed with RN who decreased pt's pain meds and pt much more alert when therapist stopped by several hours later. Supportive, capable verbalizes and demonstrates understanding of all education, and she can provide 24 hr assist at d/c. Pt motivated to go home today. No further OT services needed. Frequency of Treatment Frequency Of Treatment Discharge Discharge Recommendations OT Discharge Recommendations Home with 06/05 Assist
[2018-12-18 12:56] VITALS: O2SAT 90
[2018-12-18 13:00] VITALS: BP 117/54; PULSE 112; RESP 20; TEMP 37.1; O2SAT 95
--- NOTE | 2018-12-18 15:15 | PT.IPTN ---
Current Diagnoses Spondylolisthesis, lumbar region (12/17/18) Other spondylosis with radiculopathy, lumbar region (12/17/18) Spinal stenosis, lumbar region with neurogenic claudication (12/17/18) Postlaminectomy syndrome, not elsewhere classified (12/17/18) Surgery Performed Operation Date: 12/17/18 08:45 Actual Procedures p L4-5,L5-S1 TLIF w/Posterior Instru. - Lissy Calzada MD Physical Therapy Treatment Note M2 PT-IP Current Condition Start: 12/17/18 17:32 Freq: NEEDED Status: Active Protocol: Document 12/17/18 16:02 AB (Rec: 12/17/18 17:45 AB [id number]) Physical Therapy Current Condition Current Condition Evaluation Date 12/17/18 Treatment Diagnosis s/p L4-5, L5S1 post-lat/treasury director fusion/lami; difficulty in walking Onset Date 12/17/18 Precautions Lumbar Precautions Log Roll No Twisting Limit Bending Lifting Restriction of 10 lbs Gait Belt above Incisional Area Other Precautions O2 sat: 95-99% currently uses 2 1/2L/min; at room air: O2 sat goes down to 87% M3 PT-IP Subjective Start: 12/17/18 17:32 Freq: NEEDED Status: Active Protocol: Document 12/18/18 14:58 SA (Rec: 12/18/18 15:15 SA [id number]) Subjective Physical Therapy Visit Type Type Treatment Note Visit Start Time 13:40 Visit Stop Time 14:13 Total Visit Minutes 33 Number of [place] SEAMER Visits 1 Physical Therapy Visit Comments Patient Comments Pt agreeable to stair training , present for caregiver training. Patient Goals To go home with . Therapy Pain Assessment Pain When Pain Assessed During Mobility Pain Present Pain Present Pain Reported Location Lower Back Intensity 4 Scale Used Numeric (1 - 10) Pain Management Techniques Modification of Treatment Re-positioning Timing of Activity with Medications M4 PT-IP Mobility and Gait Start: 12/17/18 17:32 Freq: NEEDED Status: Active Protocol: Document 12/18/18 14:58 SA (Rec: 12/18/18 15:15 SA [id number]) PT-Bed Mobility Assessment Rolling Type of Rolling Log Rolling Level of Assist Standby Assistance Supine to Sit Supine to Sit Moderate Assistance 1 Person Assistance Sit to Supine Sit to Supine Minimal Assistance 1 Person Assistance Scooting Scooting to Edge of Bed Minimal Assistance Scooting Up and Down in Bed Minimal Assistance PT-Transfer Assessment Sit to and From Stand Sit to and from Stand Contact Guard Assistance Minimal Assistance Use of Upper Extremities Equipment Transfer Assistive Device Gait Belt Front Wheeled Walker Orthotic/Prosthetic Devices or Brace: No Transfers Transfer Destination Bed Chair Transfer Technique Stand Step Pivot Transfer Ability Level of Assist Contact Guard Assistance 1 Person Assistance Comments Mobility Comments Pt has most back pain with sit <>stand transition. CGA-Min A with transfers and Min-Mod A with bed mobility. Caregiver training conducted with , she is receptive and provides appropriate cues to patient during mobility tasks. 02 sats on RA at rest 90-92%. Gait Assessment Gait Gait Assistance Required: Contact Guard Assist Distance (Feet) 160 Able to Maintain Weight Bearing Status Yes During Gait Assistive Devices Assistive Device Gait Belt Front Wheeled Walker Orthotic/Prosthetic Devices or Brace: No Gait Deviations General Gait Pattern Antalgic Decreased Stride Length Decreased Feet Clearance Factors Limiting Gait Function Factors Limiting Gait Function Decreased Activity Tolerance Decreased Strength Limited Range of Motion Pain Poor Balance Poor Safety Awareness Comments Gait Comments Short walk with patient (65 feet) on RA and 02 sats dropped to 86%. Cues for PLB and to limit talking and focus on breathing and 1-2 min seated rest break to recover back to 91%. Ambulation on 1. 5L (100 ft) 02 levels 88-91% with focused PLB and limited talking. Pt tends to ignore SOB and continue walking and talking when a rest break is needed for recovery. Education provided to patient and his for pacing, rest breaks and PLB. Stair Climbing Assessment Evaluation Level of Assist On Stairs Contact Guard Assistance Minimal Assistance Devices Stair Climbing Assistive Devices Right Railing Technique/Endurance Stair Climbing Direction Ascend and Descend Stair Climbing Technique Step to Step Number of Steps Climbed 3 Query Text: Stair Climbing Set # Repetitions (reps) 2 Comments Stair Climbing Comments Pt with step to gait pattern and CGA-Min A, use of single rail and providing assist and verbal cues on 2nd rep up /down stairs. [place] feel comfortable with managing stairs at home. M5 PT-IP Objective Assessments Start: 12/17/18 17:32 Freq: NEEDED Status: Active Protocol: Document 12/17/18 16:02 AB (Rec: 12/17/18 17:45 AB [id number]) Orientation Orientation/Cognition Level of Alertness Alert Orientation Name Age Birthday Month Date Year Day of Week Place Situation Language Function Ability Hard of Hearing Safety Awareness Decreased Safety Awareness Memory Description Short Term Impaired Gross Range of Motion Lower Extremity ROM Assessment Within Functional Limits Strength Lower Extremity Strength Assessment Right Impaired Knee 3+/5 Coordination Assessment Gross Coordination Gross Coordination WNL Sensation Assessment Sensation Gross Sensation WNL Muscle Tone Muscle Tone WNL Yes M6 PT-IP Treatment Start: 12/17/18 17:32 Freq: NEEDED Status: Active Protocol: Document 12/18/18 14:58 SA (Rec: 12/18/18 15:15 SA [id number]) Physical Therapy Treatment Education Education Provided Precautions Post-Op Packet Safety M7 PT-IP Assessment and Plan Start: 12/17/18 17:32 Freq: NEEDED Status: Active Protocol: Document 12/18/18 14:58 SA (Rec: 12/18/18 15:15 SA [id number]) PT Summary Assessment and Plan Summary Assessment Summary Caregiver training conducted for bed mobility, transfers and stair climb. Education for self monitoring of 02 levels, pacing and activity planning. more receptive than patient, but she does well cuing him. Frequency of Treatment Frequency Of Treatment Twice a Day Treatment Plan Physical Therapy Treatment Plan Bed Mobility Training Transfer Training Gait Training Therapeutic Exercise Balance Retraining Post Op Education Discharge Planning Hot or Cold Pack Neuromuscular Re-ed Coordination Retraining Manual Therapy Other Recommendations and Next Treatment caregiver training, bed Focus mobility, ambulation, stair climbing Recommendations To Nursing Amount of Assist Needed 1 Person Assist Discharge Recommendations PT Discharge Recommendations Home with Assistance
[2018-12-18 15:55] VITALS: BP 137/53; RESP 20; TEMP 37.2; O2SAT 92
--- NOTE | 2018-12-18 17:19 | PM.EVENT ---
Date Patient Seen: 12/18/18 Saw patient for concerns of O2 desaturation in the mid-80's with ambulation. Patient is a chronic COPD and his baseline is likely in the upper 80's - low 90's. He was resting comfortably when I saw him with good capillary refill. He is denying CP, SOB. He did not really drop when I had him stand up. Spoke with the hospitalist and we will send him home with a nebulizer and some meds for QID prn treatment.
== END 2018-12-18 17:55 | disposition home or self-care (01) | DRG 455 ==
PROVIDERS: Admitting Provider Orthopaedic Surgery Orthopaedic Surgery of the Spine; Family Provider Family Medicine; PCP Student in an Organized Health Care Education/Training Program; Visit Provider Orthopaedic Surgery Orthopaedic Surgery of the Spine
PROC: 0SG00AJ Fusion of Lumbar Vertebral Joint with Interbody Fusion Device, Posterior Approach, Anterior Column, Open Approach (ICD-10-PCS; principal; 2018-12-17 08:45)
DX: M48.062 Spinal stenosis, lumbar region with neurogenic claudication (principal); M96.1 Postlaminectomy syndrome, not elsewhere classified; M47.26 Other spondylosis with radiculopathy, lumbar region; I10 Essential (primary) hypertension; E66.9 Obesity, unspecified; E11.9 Type 2 diabetes mellitus without complications; J44.9 Chronic obstructive pulmonary disease, unspecified; Z87.891 Personal history of nicotine dependence; Z68.35 Body mass index [BMI] 35.0-35.9, adult; M48.07 Spinal stenosis, lumbosacral region
CPT/HCPCS: 36415; 72100; 76000; 82962; 85014; 85018; 94760; 97116; 97161; 97165; 97530; 97535; C1776; C9290; J0690; J1100; J1170; J2405; J2704

== ENCOUNTER → 2019-04-02 14:24 | Outpatient (CLI) | payer MEDICARE, OTHER, SELFPAY ==
[2018-12-17 14:36] VITALS: BMI 34.9
--- NOTE | 2019-04-02 | DI.CT.S_ITS ---
PROCEDURE: CT LUMBAR SPINE WO CON INDICATIONS: Spondylolisthesis, lumbar region TECHNIQUE: Noncontrast 3 mm thick sections acquired from the T12 level to the sacrum. Sagittal and coronal reformats were constructed. For radiation dose reduction, the following was used: automated exposure control. COMPARISON: [facility], CR, XR LUMBAR SPINE 2-3V, 12/17/2018, 9:09. [facility], CR, XR LUMBAR SPINE 2 OR 3 VIEWS, 03/27/2019, 15:16. [facility], CR, XR LUMBAR SPINE 2 OR 3 VIEWS, 01/29/2019, 13:01. [facility], MR, MR LUMBAR SPINE WO CON, 08/14/2018, 12:24. FINDINGS: Image quality: Excellent. Bones: There is posterior fusion from L4-S1. Hardware is intact. The right pedicular screw is noted to traverse the superior most aspect of the L4 superior endplate. Intravertebral spacers are also noted. There is an approximate 68% compression deformity at L1. This appears mildly more prominent when compared to 03/27/19. Trace retrolisthesis is noted L1 on L2, L2 on L3. Mild multilevel disc space narrowing is present, most prominent at L3-4. Mild disc bulge including a left lateral recess/proximal left foraminal component at L1-L2, mild disc bulge L2-3, L3-4. Significant artifact is present L4-5 and L5-S1 limiting evaluation. There is a questionable appearance of asymmetric right disc bulge at L4-5. Mild spinal stenosis is noted at L1-2, moderate L2-3, moderate to severe L3-4. Mild bilateral foraminal narrowing is noted at L1-L2, L2-3, L3-4, L4-5 and moderate bilateral L5-S1. Overall, no appreciable interval change. Soft tissues: No retroperitoneal masses or hematomas. Visualized aorta is normal in caliber. IMPRESSION: 1. Posterior fusion from L4-S1 as above. 2. Multilevel spinal stenosis most notable at L3-4 secondary to disc bulge as well as a tubing artifact on appearance of overall congenital stenosis. 3. Multilevel foraminal narrowing most severe at L5-S1 secondary to facet arthropathy. Dictated by: Concepción Ruelas M.D. on 04/02/2019 at 16:37 Approved by: Concepción Ruelas M.D. on 04/02/2019 at 16:49
== END ==
PROVIDERS: Family Provider Family Medicine; PCP Family Medicine; Visit Provider Orthopaedic Surgery Orthopaedic Surgery of the Spine
DX: M43.16 Spondylolisthesis, lumbar region (principal); M48.061 Spinal stenosis, lumbar region without neurogenic claudication; M48.07 Spinal stenosis, lumbosacral region; M51.26 Other intervertebral disc displacement, lumbar region; M47.817 Spondylosis without myelopathy or radiculopathy, lumbosacral region; Z98.1 Arthrodesis status
CPT/HCPCS: 72131

== ENCOUNTER 2019-05-08 10:32 | Inpatient (IN) | payer MEDICARE, OTHER, SELFPAY ==
[2018-12-17 14:36] VITALS: BMI 34.9
[2019-05-05 09:55] VITALS: BMI 32.1
[2019-05-08] VITALS (21 sets, daily range): BP systolic 109–142; BP diastolic 50–79; PULSE 89–107; RESP 11–18; TEMP 35.8–37.3; O2SAT 94–99; BMI 32.1
--- NOTE | 2019-05-08 | DI.RAD.S_ITS ---
PROCEDURE: XR LUMBAR SPINE 2-3V INDICATIONS: L3-4 TLIF TECHNIQUE: Multiple fluoroscopic intraoperative views of the lumbar spine were acquired. COMPARISON: [facility], CT, CT LUMBAR SPINE WO CON, 04/02/2019, 14:47. [facility], CR, XR LUMBAR SPINE 2-3V, 12/17/2018, 9:09. FINDINGS: Bones: Fluoroscopic intraoperative views demonstrate posterior fixation and discectomy from L3-S1. IMPRESSION: Fluoroscopic intraoperative views of posterior fixation of the lumbosacral spine. Dictated by: Tatum Canales M.D. on 05/08/2019 at 14:32 Approved by: Tatum Canales M.D. on 05/08/2019 at 14:33
[2019-05-08] MEDS: LACTATED RINGERS 1,000 ML 42 ML IV ×2 (11:17→14:33)
[2019-05-08] MEDS: GABAPENTIN 600 MG TABLET PO (11:17)
[2019-05-08] MEDS: ACETAMINOPHEN 325 MG TABLET 975 MG PO (11:18)
--- NOTE | 2019-05-08 12:10 | PM.PREOP ---
Pre-operative Note Interval Note History & Physical reviewed/Exam performed by Physician: Yes Changes to H&P: No
[2019-05-08] MEDS: CEFAZOLIN 2 GM/100 ML FROZ.PIGGY IV ×2 (12:25→20:59)
[2019-05-08] MEDS: BUPIVACAINE 0.25% W/ EPI 30 ML VIAL INJ (13:06)
[2019-05-08] MEDS: BUPIVACAINE LIPOSOME 266 MG/20 ML VIAL INJ (13:06)
--- NOTE | 2019-05-08 15:25 | P.OP_ITS ---
Operative Date/Time/Diagnoses Date of procedure: 05/08/19 Time of procedure: 12:17 Pre-op diagnosis: 1. Loosened hardware in spine 2. L4-5, L5-S1 pseudoarthrosis 3. L3-4, L4-5, L5-S1 spinal stenosis Post-op diagnosis: same Procedure & Clinicians Procedure: 1. L3-4 posterolateral and posterior interbody fusion 2. L3-4 posterior interbody cage placement 3. L4-5, L5-S1 posterior segmental instrumentation removal 4. L4-5, L5-S1 revision laminectomy with exploration of fusion 5. L3-4, L4-5, L5-S1 posterior segmental instrumentation with pedicle screw placement 6. L4-5, L5-S1 posterolatearl fusion 7. Utilization of microsurgical technique and operating microscope Same procedure as scheduled: Yes Indications: Patient has been having chronic back pain and worsening lumbar radiculopathy. Patient had prior fusion surgery with good initial pain relief. Over the last 3 months patient has been having progressively worsening pain with x-ray showing loosening of his lumbar hardware and possible pseudoarthrosis. Patient failed multiple conservative management with worsening pain weakness and numbness in her lower extremity. Patient has been having difficulty performing activity of daily living. After discussing risks benefits of treatment options, patient elected proceed with surgery. Surgeon: Lissy Calzada Director Specialty: Peg Pineda Click Yes if Unassisted: No Anesthesia Type: General Operative Notes Closure Type: primary Specimen(s): none sent Prosthetic devices, grafts, tissues, transplants, or devices: Globus revolve screws, Rise cage Applied: catheter Estimated Blood Loss (mL): 100 Blood products transfused: none Procedure in detail: Patient was seen in the preoperative area. Risks and benefits of the surgery was discussed with the patient. Informed consent was obtained from the patient and placed in the chart. Surgical site was marked. Patient was taken to the operative room. General anesthesia was administered. Prophylactic antibiotic was given to the patient less than 30 min before the incision was made. Patient was placed into a prone position on the Oscar table. Patient's back was then prepped and draped in the sterile fashion. Time- out was performed at this time. Using patient's previous scar incision was made over the L3-4, L4-5, L5-S1 interval on the right side. Fascia was incised in line with skin incision. Patient's previously placed hardware over the L4-5, L5-S1 level was identified by dissecting down to the level the hardware using a Bovie and a Osborne. The locking caps which was removed using globus screwdriver. The locking savita was then removed from the tulips of the pedicle screws using a Reuben. The pedicle screws were then removed using the screwdriver. The screws were found to have good purchase except in L4 bilaterally. The Globus and MARS retractors was then placed into the wound and docked onto the L3 lamina using C-arm guidance. Using microsurgical technique and operating microscope a laminectomy facetectomy was performed by removing the L3 lamina and the L3-4 facet. The disc space at L3-4 level was identified next. And a total diskectomy was performed at L3-4 level. The endplates were decorticated using a rasp and shaver. The total diskectomy and decortication was performed at L3-4 level in order to to accomplish a L3-4 fusion. The local bone from the laminectomy and facetectomy was saved for local bone grafting. After the total diskectomy and decortication was completed, Globus viacell bone graft material was combined with local bone that was harvested earlier. The local bone and the Bio4 bone grafting material was placed into the L3-4 interbody space along with a expandable cage. The cage was expanded to its maximum height using the torque limiting screwdriver. At this time a mirror image incision was made on the left side. The fascia was incised in line with the skin incision. Patient's previously placed hardware on the left side was then removed in the same fashion as it was on the right side. The hardware was also found to have good purchase. The fusion mass on the left side was exposed by performing a left-sided hemilaminectomy at L4-5, L5-S1 level. The hemilaminectomy was performed using the Kerrison rongeur to undercut the lamina as well removing additional epidural scar tissue for purpose of decompressing the epidural space. The fusion mass was explored and was found have visible motion indicating pseudoarthrosis. Globus MARS retractor was inserted and docked onto the L3-4, L4-5, L5-S1 posterolateral gutter. Using the power drill, posterior-lateral decortication was performed at L3-4, L4-5, L5-S1 level until bleeding cortical bone was identified. The remaining bone grafting material was placed into the L3-4, L4-5, L5-S1 posterior lateral gutter he order to accomplish posterolateral fusion at the L3-4, L4-5, L5-S1 level. Using the double C-arm technique, pedicle screws were placed into the L3, L4 L5, S1 pedicles bilaterally. This was done by placing the Jamshidi needle into the pedicles, then placing the guidewires over the Jamshidi needle, and finally placing the cannulated screws over the guidewires bilaterally. After the pedicle screws were placed, 2 titanium rods was locked into the heads of the pedicle screws using locking caps and torque limiting screwdriver. After all the hardware was placed, and confirmed with AP and lateral C-arm imaging, the wound was then irrigated with sterile normal saline and packed with Ray-Elvin gauze for 3 min to accomplish hemostasis. After the gauze was removed the deep fascia was closed with #1 Vicryl suture. The subcutaneous layer was closed with 2-0 Vicryl. The skin was closed with skin cassie. Patient tolerated the procedure well. There were no complications. Complications: none Condition: stable Disposition: PACU Plan for aftercare: Admit to inpatient hospital
--- NOTE | 2019-05-08 16:56 | SUR.PHASEI ---
pt denies any pain at this time, moving all extremities, strong plantar reflexes, pt has inspiratory and expiratory wheezing noted, will give respiratory treatment per anesthesia order. PT REMAINS ON OXYGEN BY NC AT 2L. pt diaphoretic and stating he is hot, blood sugar recheck and = 163.
[2019-05-08] MEDS: ALBUTEROL 2.5 MG/3 ML NEB (ADULT) INH (17:01)
--- NOTE | 2019-05-08 17:05 | SUR.PHASEI ---
REPORT TO OMER POPE.
--- NOTE | 2019-05-08 17:11 | SUR.PHASEI ---
Assumed care. Rt treatment completed. Exp wheeze in asuncion anterior lobes. Pt denied dyspnea. O2 sat 95%2lnc. Pt diaphoretic, temp 96.5. Cool washcloth applied.
--- NOTE | 2019-05-08 17:23 | SUR.PHASEI ---
Report called to [facility]. VS stable.
--- NOTE | 2019-05-08 17:47 | SUR.PHASEI ---
Pt transferred to the floor on 2l o2 and o2 monitor. VS stable on 2l o2. Report to [facility]. Ricco checked with RN. IV saline locked. + BUE tremors that started after albuterol treatment. [place] tinged urine with sediment noted in muñoz, muñoz drained and muñoz drained yellow urine. Belongings bag and inhaler with patient.
[2019-05-08] MEDS: SODIUM CHLORIDE 0.9% 1,000 ML 100 ML IV (17:54)
[2019-05-08] MEDS: DOCUSATE 100 MG CAPSULE PO (21:22)
[2019-05-08] MEDS: LISINOPRIL 20 MG TABLET 40 MG PO (21:23)
[2019-05-08] MEDS: METFORMIN HCL 500 MG TABLET 1000 MG PO (21:23)
[2019-05-08] MEDS: SENNOSIDES 8.6 MG TABLET 17.2 MG PO (21:23)
[2019-05-08] MEDS: INSULIN ASPART 100 UNIT/ML INSULN PEN SUBCUT (21:24)
[2019-05-09] VITALS (16 sets, daily range): BP systolic 114–132; BP diastolic 45–90; PULSE 68–106; RESP 12–20; TEMP 36.4–37.4; O2SAT 84–97
[2019-05-09] MEDS: ALBUTEROL/IPRATROPIUM 3 ML AMPUL INH ×4 (00:06→22:25)
--- NOTE | 2019-05-09 00:18 | PC.NURSE ---
Addendum entered by Caity Choi R.N. 05/09/19 07:51: Pt educated about use of IS. Original Note: Pt's VSS, lungs sounds have bilateral expiritory wheezing, pt is on 2 liters NC, 96%. Pt denies pain. CMS intact, pedal pulses strong. Pt has Barrier dressing that is clean/dry/intact. Pt wearing SCD's.
[2019-05-09] MEDS: CEFAZOLIN 2 GM/100 ML FROZ.PIGGY IV (04:18)
[2019-05-09 06:27] LABS: Hematocrit 30.4 % (41-53); Hemoglobin 10.1 g/dL (13.5-17.5)
[2019-05-09] MEDS: METFORMIN HCL 500 MG TABLET 1000 MG PO ×2 (08:00→22:08)
[2019-05-09] MEDS: PANTOPRAZOLE 20 MG TABLET PO (08:01)
[2019-05-09] MEDS: HYDROMORPHONE 2 MG TABLET PO ×4 (08:01→17:43)
[2019-05-09] MEDS: DOCUSATE 100 MG CAPSULE PO ×2 (08:01→22:06)
--- NOTE | 2019-05-09 09:40 | PM.PNPO.1 ---
Subjective Date Patient Seen: 05/09/19 Time Patient Seen: 09:40 Interval history: Patient's pain is moderate. Pain is currently well controlled with 1 mg Dilaudid. Denies fever chills. No nausea vomiting. Has not yet been up with physical therapy. Exam Vital Signs (past 8 hours): - 05/09/19 04:27 05/09/19 06:20 05/09/19 07:25 Temperature 98.3 F 98.5 F Pulse Rate 77 75 84 Respiratory Rate 16 18 91 H Blood Pressure 115/45 L 114/54 L Pulse Oximetry 96 94 16 L 05/09/19 09:00 05/09/19 09:25 05/09/19 09:30 Temperature Pulse Rate Respiratory Rate Blood Pressure Pulse Oximetry 96 87 L 91 05/09/19 09:35 Temperature Pulse Rate Respiratory Rate Blood Pressure Pulse Oximetry 87 L Fraction of Inspired Oxygen 21 Oxygen Delivery Method Room Air Oxygen Flow Rate 0 Narrative Exam Narrative: Pleasant 73-year-old male resting comfortably in bed in no apparent distress. Sensation is intact to the bilateral lower extremities. Motor functions intact bilateral lower extremities. Both legs are warm and dry. Dressing is clean, dry and intact. Diaz catheter in place. Objective Labs Result Diagrams: 05/09/19 06:14 Labs: Laboratory Results - last 24 hr 05/09/19 06:14 Hgb 10.1 L Hct 30.4 L Assessment & Plan Post-op Postoperative Procedures Operation Date: 05/08/19 12:15 Actual Procedures Side Surgeon p L3-4 TLIF, L4-s1 HWR and L3-s1 PSF Lissy Calzada MD Postop day 1. Patient progressing as expected. Mobilize with physical therapy. Limit bending, twisting, lifting. We will continue the Dilaudid and he is intolerant to tramadol, hydrocodone, oxycodone. Likely discharge and 1-2 days.
--- NOTE | 2019-05-09 10:19 | PT.IIE ---
Current Diagnoses Spinal stenosis, lumbar region without neurogenic claudication (05/08/19) Other mechanical complication of other internal orthopedic devices, implants and grafts, initial encounter (05/08/19) Surgery Performed Operation Date: 05/08/19 12:15 Actual Procedures p L3-4 TLIF, L4-s1 HWR and L3-s1 PSF - Lissy Calzada MD Surgical History (Last Updated 05/05/19 @ 10:00 by Radha Kelsey RN) S/P lumbar fusion (Acute 12/17/18) H/O vasectomy (Acute) History of nasal surgery (Acute) Hx of tonsillectomy (Acute) Hx of appendectomy (Resolved) Hx of colonoscopy with polypectomy (Resolved 01/2013) Hx of rotator cuff surgery (Resolved ~2004) Hx of sinus surgery (Resolved) Status post cholecystectomy (09/30/13) Medical History (Last Updated 12/11/18 @ 14:31 by Radha Kelsey RN) ASD (atrial septal defect) (Acute) Compression fracture of L1 lumbar vertebra (Acute 09/12/18) Easy bruisability (Acute) Former smoker (Acute) HTN (hypertension) (Acute) Pneumonia (Acute) Allergic rhinitis (Chronic) Asthma (Chronic) Diabetes (Chronic) GERD (gastroesophageal reflux disease) (Chronic) Hypertension (Chronic) Recurrent sinusitis (Chronic) Shoulder pain (Chronic ~07/2017) Colon polyps (Resolved ~01/2013) Renal cyst (Resolved) Physical Therapy Inpatient Evaluation/Re-Eval M1 PT/OT-IP Prior Functional Status Start: 05/09/19 11:44 Freq: NEEDED Status: Active Protocol: Document 05/09/19 11:44 CGR (Rec: 05/09/19 12:00 CGR [email or web address]) Medical Review Prior Functional Status Medical History Reviewed Yes Communication Able to communicate effecively Activities of Daily Living and IADL's Pt was ind in all ADLs and functional mobility prior to admit. Social History Household Members spouse Living Arrangements House Number of Floors (Floors) One Floor Number of Stairs To Enter/Railing? 3 steps into home without rail , States he has rails at the front of his house but there are more steps and he doesn't typically enter there. Home Environment Tub/Shower Built-In Shower Seat Home Equipment Hand Held Shower Employment Status Retired Additional Social History Comment Pt states that he doesn't have grab bars but that he has a counter next to his toilet that he uses to get up. Standard height toilet. M1 PT/OT-IP Prior Functional Status Start: 05/09/19 11:46 Freq: NEEDED Status: Active Protocol: Document 05/09/19 10:19 AB (Rec: 05/09/19 12:16 AB [id number]) Medical Review Prior Functional Status Medical History Reviewed Yes Communication able to make needs known Mobility and Gait pt stated that he is independent with all mobilities and ambulation without AD Social History Household Members spouse Living Arrangements House Number of Floors (Floors) One Floor Number of Stairs To Enter/Railing? 2 steps to enter without rails but pt stated that he holds on to edge of door opening for support Home Environment Standard Height Toilet Walk in Shower Built-In Shower Seat Home Equipment Front Wheel Walker Straight Cane Hand Held Shower Additional Social History Comment pt plans to use his recliner to sleep on M2 PT-IP Current Condition Start: 05/09/19 11:46 Freq: NEEDED Status: Active Protocol: Document 05/09/19 10:19 AB (Rec: 05/09/19 12:16 AB [id number]) Physical Therapy Current Condition Current Condition Evaluation Date 05/09/19 Treatment Diagnosis L3-4 fusion; L4S1 rev. lami; fusion; L3S1 instrument; difficulty in walking Onset Date 05/08/19 Precautions Lumbar Precautions Log Roll No Twisting Limit Bending Lifting Restriction of 10 lbs Gait Belt above Incisional Area M3 PT-IP Subjective Start: 05/09/19 11:46 Freq: NEEDED Status: Active Protocol: Document 05/09/19 10:19 AB (Rec: 05/09/19 12:16 AB [id number]) Subjective Physical Therapy Visit Type Type Initial Evaluation Visit Start Time 10:19 Visit Stop Time 11:00 Total Visit Minutes 41 Number of BELTING CUTTER Visits 0 Physical Therapy Visit Comments Patient Comments pt agreeable to do PT Therapy Pain Assessment Pain When Pain Assessed At Rest Pain Present Pain Present Pain Reported Location Lower Back Intensity 5 Scale Used Numeric (1 - 10) Pain Management Techniques Re-positioning Timing of Activity with Medications M4 PT-IP Mobility and Gait Start: 05/09/19 11:46 Freq: NEEDED Status: Active Protocol: Document 05/09/19 10:19 AB (Rec: 05/09/19 12:16 AB [id number]) PT-Bed Mobility Assessment Rolling Type of Rolling Log Rolling Level of Assist Standby Assistance Supine to Sit Supine to Sit Standby Assistance Sit to Supine Sit to Supine Standby Assistance Scooting Scooting to Edge of Bed Standby Assistance PT-Transfer Assessment Sit to and From Stand Sit to and from Stand Contact Guard Assistance Equipment Transfer Assistive Device Gait Belt Front Wheeled Walker Orthotic/Prosthetic Devices or Brace: No Transfers Transfer Destination Bed Chair Transfer Technique Stand Step Pivot Transfer Ability Level of Assist Contact Guard Assistance Comments Mobility Comments pt can be impulsive. requires cues for bed mobility log roll for techniques and safety . Gait Assessment Gait Gait Assistance Required: Minimum Assistance Distance (Feet) 35 Able to Maintain Weight Bearing Status Yes During Gait Assistive Devices Assistive Device Gait Belt Front Wheeled Walker Orthotic/Prosthetic Devices or Brace: No Gait Deviations General Gait Pattern Antalgic Decreased Stride Length Decreased Feet Clearance Step-to Gait Factors Limiting Gait Function Factors Limiting Gait Function Decreased Activity Tolerance Decreased Strength Limited Range of Motion Pain Poor Balance Poor Safety Awareness Comments Gait Comments pt completed ambulation in room using FWW ~ 35 ft. pt with (+) R hand shaking but able to ambulate and control FWW. PT-Balance Assessment Sitting Balance and Reactions Static Sitting Balance Ability Good Dynamic Sitting Balance Ability Good Standing Balance and Reactions Static Standing Balance Ability Fair Dynamic Standing Balance Ability Fair Device Used FWW M5 PT-IP Objective Assessments Start: 05/09/19 11:46 Freq: NEEDED Status: Active Protocol: Document 05/09/19 10:19 AB (Rec: 05/09/19 12:16 AB [id number]) Orientation Orientation/Cognition Level of Alertness Alert Orientation Name Place Situation Language Function Ability No Deficits Noted Safety Awareness Decreased Safety Awareness Memory Description Short Term Impaired Gross Range of Motion Lower Extremity ROM Assessment Within Functional Limits Strength Lower Extremity Strength Assessment Bilaterally Impaired Comments Strength Comments LLE 4-/5 RLE 3+/5 Coordination Assessment Gross Coordination Gross Coordination WNL Sensation Assessment Sensation Gross Sensation Right LE Impaired Sensation Description Tingling Comments Sensation Comments c/o tingling on R toes Muscle Tone Muscle Tone WNL Yes M6 PT-IP Treatment Start: 05/09/19 11:46 Freq: NEEDED Status: Active Protocol: Document 05/09/19 10:19 AB (Rec: 05/09/19 12:16 AB [id number]) Physical Therapy Treatment Education Education Provided Precautions Weight Bearing Status Post-Op Packet Safety M7 PT-IP Assessment and Plan Start: 05/09/19 11:46 Freq: NEEDED Status: Active Protocol: Document 05/09/19 10:19 AB (Rec: 05/09/19 12:16 AB [id number]) PT Summary Assessment and Plan Potential Rehabilitation Potential Good Status of Condition at Evaluation Stable Summary Impairments Pain ROM Strength Balance Cognition Bed Mobility Transfers Gait Activity Tolerance Assessment Summary pt requiring CGA to min A for mobility and plans to go home with spouse to assist him. will conduct caregiver training if appropriate and stair climbing also will be completed prior to d/c. Goals Bed Mobility Goal Independent Transfer Goal Independent Gait Goal Independent Gait Distance 200 Other Goals up/down 2 steps without rails usign SPC/INTERNATIONAL RELATIONS TEACHER SBA Days to Meet Goals 5 Frequency of Treatment Frequency Of Treatment Twice a Day Treatment Plan Physical Therapy Treatment Plan Bed Mobility Training Transfer Training Gait Training Therapeutic Exercise Balance Retraining Post Op Education Discharge Planning Hot or Cold Pack Neuromuscular Re-ed Coordination Retraining Manual Therapy Other Recommendations and Next Treatment ambulation; caregiver training Focus and stair training when appropriate Recommendations To Nursing Amount of Assist Needed 1 Person Assist Discharge Recommendations PT Discharge Recommendations Home with Assistance
--- NOTE | 2019-05-09 11:24 | PC.NURSE ---
Day Shift- Diaz removed at 1110 with out difficulty. Explained post urinary catheter expectations. CMS+, PPP, Puffy edema to bilateral ankles. Lower back dressing intact with small sang shadowing to left bottom corner of dressing. Pt oriented, determined. At times follows direction. After getting OOB with PT to the chair. Chair alarm on. Pt wanting to get out of chair by himself, not needing the walker. Frequent reminders of safety and fall prevention discussed. Pt continued to ambulate when reminded not to do so without staff assistance. Pt continued to ambulate in room. Eventually settled back into chair with chair alarm placed on. Another instance where pt took off chair alarm and this life insurance underwriter found him standing at the recliner chair, stating he wanted to find his underwear. Underwear given to pt and settled back in chair with chair alarm on. Dilaudid po prn given X2. first dose pt only wanted 1mg, stating he does not like to use narcotics. 2nd dose given pt requested 2mg. Pt states Tylenol does not work for him. Pain 3/10 rest, 5-7/10 with movement.
[2019-05-09] MEDS: INSULIN ASPART 100 UNIT/ML INSULN PEN SUBCUT ×2 (11:51→17:31)
--- NOTE | 2019-05-09 12:00 | OT.IP.EVAL ---
Current Diagnoses Spinal stenosis, lumbar region without neurogenic claudication (05/08/19) Other mechanical complication of other internal orthopedic devices, implants and grafts, initial encounter (05/08/19) Surgery Performed Operation Date: 05/08/19 12:15 Actual Procedures p L3-4 TLIF, L4-s1 HWR and L3-s1 PSF - Lissy Calzada MD Past Medical History (Last Updated 12/11/18 @ 14:31 by Radha Kelsey RN) ASD (atrial septal defect) (Acute) Compression fracture of L1 lumbar vertebra (Acute 09/12/18) Easy bruisability (Acute) Former smoker (Acute) HTN (hypertension) (Acute) Pneumonia (Acute) Allergic rhinitis (Chronic) Asthma (Chronic) Diabetes (Chronic) GERD (gastroesophageal reflux disease) (Chronic) Hypertension (Chronic) Recurrent sinusitis (Chronic) Shoulder pain (Chronic ~07/2017) Colon polyps (Resolved ~01/2013) Renal cyst (Resolved) Surgical History (Last Updated 05/05/19 @ 10:00 by Radha Kelsey RN) S/P lumbar fusion (Acute 12/17/18) H/O vasectomy (Acute) History of nasal surgery (Acute) Hx of tonsillectomy (Acute) Hx of appendectomy (Resolved) Hx of colonoscopy with polypectomy (Resolved 01/2013) Hx of rotator cuff surgery (Resolved ~2004) Hx of sinus surgery (Resolved) Status post cholecystectomy (09/30/13) Occupational Therapy Inpatient Evaluation/Re-Eval M1 PT/OT-IP Prior Functional Status Start: 05/09/19 11:44 Freq: NEEDED Status: Active Protocol: Document 05/09/19 11:44 CGR (Rec: 05/09/19 12:00 CGR [email or web address]) Medical Review Prior Functional Status Medical History Reviewed Yes Communication Able to communicate effecively Activities of Daily Living and IADL's Pt was ind in all ADLs and functional mobility prior to admit. Social History Household Members spouse Living Arrangements House Number of Floors (Floors) One Floor Number of Stairs To Enter/Railing? 3 steps into home without rail , States he has rails at the front of his house but there are more steps and he doesn't typically enter there. Home Environment Tub/Shower Built-In Shower Seat Home Equipment Hand Held Shower Employment Status Retired Additional Social History Comment Pt states that he doesn't have grab bars but that he has a counter next to his toilet that he uses to get up. Standard height toilet. M2 OT-IP Current Condition Start: 05/09/19 11:44 Freq: Status: Active Protocol: Document 05/09/19 11:44 CGR (Rec: 05/09/19 12:00 CGR [email or web address]) Occupational Therapy Current Condition Current Condition Evaluation Date 05/09/19 Treatment Diagnosis L3-4 TLIF. L3-S1 posterior instrumentation Diagnosis Onset Date 05/08/19 Post Operative Precautions Lumbar Precautions Log Roll No Twisting Limit Bending Lifting Restriction of 10 lbs Gait Belt above Incisional Area M3 OT- IP Subjective and Pain Start: 05/09/19 11:44 Freq: Status: Active Protocol: Document 05/09/19 11:44 CGR (Rec: 05/09/19 12:00 CGR [email or web address]) OT- Subjective Occupational Therapy Visit Type Type Initial Evaluation Visit Start Time 09:50 Visit Stop Time 10:20 Total Visit Minutes 30 Occupational Therapy Visit Comments Patient Comments I have had a bakc surgery before. OT Pain Assessment Pain When Pain Assessed At Rest Pain Present Pain Present Pain Reported Location Lower Back Intensity 4 Scale Used Numeric (1 - 10) M4 OT- IP ADL's Start: 05/09/19 11:44 Freq: Status: Active Protocol: Document 05/09/19 11:44 CGR (Rec: 05/09/19 12:00 CGR [email or web address]) OT [id number] General Evaluation Self-Feeding Ability Independent OT ADL-Grooming General Evaluation Grooming Ability Standby Assistance Areas Needing Assistance Retrieving/Set-up of Grooming Items Face Washing Comments OT Grooming Comments Seated in chair OT ADL-Oral Care General Eval Oral Care Ability Standby Assistance Areas of Assistance Brushing Teeth Retrieving/Set-Up of Items Comments Oral Care Comments Seated in chair OT ADL-Dressing Comments OT Dressing Comments Not performed on this date. OT ADL-Toileting Comments OT Toileting Comments Not performed M5 OT- IP IADL's Start: 05/09/19 11:44 Freq: Status: Active Protocol: Document 05/09/19 11:44 CGR (Rec: 05/09/19 12:00 CGR [email or web address]) OT-Instrumental Activities of Daily Living Deficits IADL Deficits Identified Deficits Home Safety Awareness Awareness of Need for Assistance at Home Good Awareness Ability to Problem Solve Emergency Able to Problem Solve Situations Home Safety Comments Pt is slightly impulsive likely from pain. Medication Management Medication Management No Deficits Identified Money Management Money Management No Deficits Identified Meal Preparation Meal Preparation Caregiver Provides Assist Electric Meter Repairer Helper Electric Meter Repairer Helper Caregiver Provides Assist Driving Driving Caregiver Provides Assist M6 OT- IP Functional Cognition Start: 05/09/19 11:44 Freq: Status: Active Protocol: Document 05/09/19 11:44 CGR (Rec: 05/09/19 12:00 CGR [email or web address]) Cognitive Factors Limiting Selfcare Function Cognitive Ability Level of Alertness Alert Patient Orientation Name Age Birthday Month Date Year Day of Week Place Situation Attention Span Ability Capable of Focused Attention Capable of Sustained Attention Ability to Follow Commands Able to Follow Multi-Step Commands Memory Description No Deficits Noted Safety Awareness No Deficits Noted Problem Solving Ability No deficits Noted Executive Function Ability No Deficits Noted Abstract Thinking Ability No Deficits Noted OT- Vision and Hearing OT- Hearing Assessment OT- Hearing Assessment WFL OT- Vision Assessment Visual Acuity Glasses For Reading Visual Attentiveness WFL Occular Pursuits WFL Visual Convergence WFL Visual Lopez WFL M7 OT- IP Mobility and Balance Start: 05/09/19 11:44 Freq: Status: Active Protocol: Document 05/09/19 11:44 CGR (Rec: 05/09/19 12:00 CGR [email or web address]) OT- Bed Mobility Assessment Rolling Type of Rolling Log Rolling Roll to Right Level of Assistance Moderate Assistance Supine to Sit Supine to Sit Assist Moderate Assistance Scooting Scooting to Edge of Bed Standby Assistance OT-Transfer Assessment Sit to and From Stand Sit to and from Stand Contact Guard Assistance Transfers Transfer Ability Contact Guard Assistance Technique Transfer Destination Bed Chair Transfer Technique Stand Step Pivot Devices Transfer Assistive Devices Gait Belt Front Wheeled Walker Comments Mobility Comments Transfer to chair with shaky hands. Limited mobility on this date due to pain. OT- Balance Assessment Sitting Balance and Reactions Static Sitting Balance Ability Normal Dynamic Sitting Balance Ability Normal Standing Balance and Reactions Static Standing Balance Ability Normal Dynamic Standing Balance Ability Normal M8 OT- IP Objective Assessments Start: 05/09/19 11:44 Freq: Status: Active Protocol: Document 05/09/19 11:44 CGR (Rec: 05/09/19 12:00 CGR [email or web address]) OT Gross Range of Motion Upper Extremity Range of Motion Assessment Within Functional Limits OT Strength Upper Extremity Strength Assessment Within Functional Limits Comments Strength Comments Grossly 4/5 OT- Coordination Assessment Upper Extremity Finger to Nose Test Within Functional Limits Finger Tapping Test Within Functional Limits OT-Muscle Tone Assessment Muscle Tone WNL Yes OT Sensation Assessment Comments Summary Comments No sensation deficits Edema Edema Absent M9 OT- IP Assessment and Plan Start: 05/09/19 11:44 Freq: Status: Active Protocol: Document 05/09/19 11:44 CGR (Rec: 05/09/19 12:00 CGR [email or web address]) OT Summary Assessment and Plan Potential Rehabilitation Potential Excellent Analytic Complexity at Evaluation Low Summary OT Impairments Pain Functional Mobility Grooming Dressing Toileting Bathing Toilet Transfers Shower Transfers Progress Towards Goals Slow Progress due to Pain Assessment Summary Pt presents s/p back sx. Pt with siginificant pain with mobility but agreeable to transfer to chair. ADLs and education performed while seated. Pt is likley to progress quickly but will benefit from continued OT services. Goals Grooming Goal Independent Dressing Goal Independent Dressing Stick Shirt Creaser Sock Aid Toileting Goal Independent Bathing Goal Independent Toilet Transfer Goal Independent Counter Next to Toilet Shower Transfer Goal Independent Walk-in Shower Days to Meet Goals 2 Frequency of Treatment Frequency Of Treatment Once a Day Treatment Plan OT Treatment Plan ADL Training Functional Mobility Patient/Family Education Discharge Planning Other Treatment Recommendations and Next Pt would benefit from LB Treatment Focus dressing, shower, and toilet training. ADLs standing at sink if able. Discharge Recommendations OT Discharge Recommendations Home with Assistance Other Discharge Recommendations Pt is likely to progress quickly for a discharge home with . Home Equipment Needs Hip kit.
--- NOTE | 2019-05-09 14:40 | PT.IPTN ---
Current Diagnoses Spinal stenosis, lumbar region without neurogenic claudication (05/08/19) Other mechanical complication of other internal orthopedic devices, implants and grafts, initial encounter (05/08/19) Surgery Performed Operation Date: 05/08/19 12:15 Actual Procedures p L3-4 TLIF, L4-s1 HWR and L3-s1 PSF - Lissy Calzada MD Physical Therapy Treatment Note M2 PT-IP Current Condition Start: 05/09/19 11:46 Freq: NEEDED Status: Active Protocol: Document 05/09/19 10:19 AB (Rec: 05/09/19 12:16 AB [id number]) Physical Therapy Current Condition Current Condition Evaluation Date 05/09/19 Treatment Diagnosis L3-4 fusion; L4S1 rev. lami; fusion; L3S1 instrument; difficulty in walking Onset Date 05/08/19 Precautions Lumbar Precautions Log Roll No Twisting Limit Bending Lifting Restriction of 10 lbs Gait Belt above Incisional Area M3 PT-IP Subjective Start: 05/09/19 11:46 Freq: NEEDED Status: Active Protocol: Document 05/09/19 14:40 AB (Rec: 05/09/19 15:18 AB [id number]) Subjective Physical Therapy Visit Type Type Treatment Note Visit Start Time 14:40 Visit Stop Time 15:00 Total Visit Minutes 20 Number of MMD UNIT TEACHER Visits 0 Physical Therapy Visit Comments Patient Comments pt agreeable to do PT Therapy Pain Assessment Pain When Pain Assessed At Rest Pain Present Pain Present Pain Reported Location Lower Back Intensity 4 Scale Used Numeric (1 - 10) Pain Management Techniques Apply Cold Timing of Activity with Medications M4 PT-IP Mobility and Gait Start: 05/09/19 11:46 Freq: NEEDED Status: Active Protocol: Document 05/09/19 14:40 AB (Rec: 05/09/19 15:18 AB [id number]) PT-Transfer Assessment Sit to and From Stand Sit to and from Stand Contact Guard Assistance 1 Person Assistance Equipment Transfer Assistive Device Gait Belt Front Wheeled Walker Orthotic/Prosthetic Devices or Brace: No Gait Assessment Gait Gait Assistance Required: Contact Guard Assist Distance (Feet) 225 Able to Maintain Weight Bearing Status Yes During Gait Assistive Devices Assistive Device Gait Belt Front Wheeled Walker Orthotic/Prosthetic Devices or Brace: No Gait Deviations General Gait Pattern Decreased Stride Length Decreased Feet Clearance Factors Limiting Gait Function Factors Limiting Gait Function Decreased Activity Tolerance Decreased Strength Limited Range of Motion Pain Poor Balance Poor Safety Awareness M5 PT-IP Objective Assessments Start: 05/09/19 11:46 Freq: NEEDED Status: Active Protocol: Document 05/09/19 10:19 AB (Rec: 05/09/19 12:16 AB [id number]) Orientation Orientation/Cognition Level of Alertness Alert Orientation Name Place Situation Language Function Ability No Deficits Noted Safety Awareness Decreased Safety Awareness Memory Description Short Term Impaired Gross Range of Motion Lower Extremity ROM Assessment Within Functional Limits Strength Lower Extremity Strength Assessment Bilaterally Impaired Comments Strength Comments LLE 4-/5 RLE 3+/5 Coordination Assessment Gross Coordination Gross Coordination WNL Sensation Assessment Sensation Gross Sensation Right LE Impaired Sensation Description Tingling Comments Sensation Comments c/o tingling on R toes Muscle Tone Muscle Tone WNL Yes M6 PT-IP Treatment Start: 05/09/19 11:46 Freq: NEEDED Status: Active Protocol: Document 05/09/19 14:40 AB (Rec: 05/09/19 15:18 AB [id number]) Physical Therapy Treatment Education Education Provided Precautions Safety M7 PT-IP Assessment and Plan Start: 05/09/19 11:46 Freq: NEEDED Status: Active Protocol: Document 05/09/19 14:40 AB (Rec: 05/09/19 15:18 AB [id number]) PT Summary Assessment and Plan Potential Rehabilitation Potential Good Summary Impairments Pain ROM Strength Balance Sensation Bed Mobility Transfers Gait Activity Tolerance Progress Towards Goals Progressing Toward Goals Assessment Summary pt requiring CGA with ambulation. can be impulsive and self directs his care but is aware of his precautions. pt wants to go home tomorrow and informed regarding stair climbing training. informed pt's spouse as well. pt may go home when medically stable and has completed stair climbing safely. Goals Bed Mobility Goal Independent Transfer Goal Independent Gait Goal Independent Gait Distance 200 Other Goals up/down 2 steps without rails usign SPC/TELEPHONER SBA Days to Meet Goals 5 Frequency of Treatment Frequency Of Treatment Twice a Day Treatment Plan Physical Therapy Treatment Plan Bed Mobility Training Transfer Training Gait Training Therapeutic Exercise Balance Retraining Post Op Education Discharge Planning Hot or Cold Pack Neuromuscular Re-ed Coordination Retraining Manual Therapy Other Recommendations and Next Treatment ambulation; caregiver training Focus and stair training when appropriate Recommendations To Nursing Amount of Assist Needed 1 Person Assist Discharge Recommendations PT Discharge Recommendations Home with Assistance
--- NOTE | 2019-05-09 17:56 | PC.NURSE ---
WOOL FLEECE SORTER note: PT refuses to call for help getting up out of bed or the chair. He takes alarm off on his own.
[2019-05-09] MEDS: SENNOSIDES 8.6 MG TABLET 17.2 MG PO (22:05)
[2019-05-09] MEDS: LISINOPRIL 20 MG TABLET 40 MG PO (22:06)
[2019-05-09] MEDS: hydrOXYzine pamoate 25 MG CAPSULE PO (22:08)
[2019-05-10 00:20] VITALS: O2SAT 94
--- NOTE | 2019-05-10 01:46 | PC.NURSE ---
FORESTRY FIRE AID note: Patient isn't using call light. Cottle bed alarm going off. Patient was snf out of bed. He said he needed to go to the bathroom. Patient was unsteady on his feet. Patient attempted to get back into bed and said this is the hard part. I can't move. I attempted to get him back into bed using the log roll technique. Patient said I can't do that. Patient then said he's going to have a hard time fucking if I can't move. I said excuse me? he then said Well it doesn't matter because my is in menopause and she doesn't like it anyways. I said Let's get you back into bed. And patient kept talking about sex and this back surgery. I asked him what his favorite kind of tree was and he needs to not twist and keep a straight back like a pine tree. Patient twisted into bed. Then decided he wanted to sit at the edge of the bed. Let him sit on the edge of the bed with bed alarm on and call light within reach. Told him he need to call to get up. Patient set off bed alarm multiple times in 10 minutes. Standing up and trying to turn off bed alarm. Walked into room after fourth attempt to get up and said All right sir, let's get back into bed. Let's try to log roll. Patient twisted into bed with assist, not listening or following directions. Patient sleeping on right side. Patient has bed alarm on. Call light within reach. Told the situation to OMER Carolina and charge nurse Lee Ann.
--- NOTE | 2019-05-10 04:05 | PC.NURSE ---
Addendum entered by Caity Choi R.N. 05/10/19 06:48: Pt was able to participate in working on the log roll. Pt was up to go to the bathroom to have a BM but was unsuccessful. Original Note: Pt is trying to get out of bed w/o help and not using call light appropriately. We have suggested that pt use call light so he can be instructed on post op body mechanics. He agreed that next time he wanted to get up he would let us know so that we could help him w/ propper log roll technique. Pt states he is in pain 5/10 when moving and 2/10 when not moving. Pt denied pain medications because he doesn't like the way they make him feel. Pt denied to wear SCD's tonight.
[2019-05-10 05:35] VITALS: BP 151/54; PULSE 93; RESP 18; TEMP 37.2; O2SAT 92
[2019-05-10] MEDS: ALBUTEROL/IPRATROPIUM 3 ML AMPUL INH (05:41)
[2019-05-10 05:43] VITALS: PULSE 91; RESP 18; O2SAT 92
[2019-05-10 08:05] VITALS: O2SAT 92
[2019-05-10] MEDS: DOCUSATE 100 MG CAPSULE PO (08:09)
[2019-05-10] MEDS: HYDROMORPHONE 2 MG TABLET PO (08:09)
[2019-05-10] MEDS: METFORMIN HCL 500 MG TABLET 1000 MG PO (08:10)
[2019-05-10] MEDS: PANTOPRAZOLE 20 MG TABLET PO (08:10)
[2019-05-10] MEDS: INSULIN ASPART 100 UNIT/ML INSULN PEN SUBCUT (08:11)
[2019-05-10 08:25] VITALS: BP 133/58; PULSE 105; RESP 20; TEMP 36.7; O2SAT 91
[2019-05-10 08:45] VITALS: O2SAT 96
--- NOTE | 2019-05-10 09:28 | CM.DANOTE ---
Addendum entered by Toña Viveros LPN 05/10/19 10:17: Met as planned with pt this morning. Introduced self and role. Pt was just starting a session with MANUFACTURING PLANT TECHNICIAN Stacey and struggling to log roll but bed not yet flat. He did confirm that he was going home with his and she would be in for caregiver assist training. Review of PT/OT notes of yesterday show that pt was proceeding will toward this goal. Discussed case then in Team Rounds and Stacey reported that her session with pt went very well, that the arrived shortly after they started and plan is for home today. Dr. Tretn rounded during the Team meeting time and a d/c to home order is now in place. Pt wishes to leave this morning. P: home today as per his plan. Original Note: Discharge Planning/Care Management DCP: assessment: Case received yesterday, EMR reviewed. Discussed in Team Rounds. Pt is a 73 year old male who admitted on 05/08 for a planned spinal surgery: Surgeon: Dr. Calzada. PCP: unknown at this time: provider listed is no longer in the area. Payer: Medicare and [employer]. PT and OT had not yet seen pt. Planned to check in later with pt after more was known. CM Discharge Assessment Start: 05/10/19 09:27 Freq: Status: Active Protocol: Document 05/10/19 09:27 ITV (Rec: 05/10/19 09:28 ITV [id number]) Discharge Planning Assessment Advance Directives? No Advance Directives on File No History Provided By Patient Medical Record Prior Living Arrangements House Household Members spouse Is patient alert and oriented? Yes Whiteboard Updated in Patient Room with Yes name and ext. # of Fast Food Worker Pre-Anesthesia Assessment Start: 05/05/19 09:55 Freq: Status: Complete Protocol: Document 05/05/19 09:55 CAB (Rec: 05/05/19 10:18 CAB [id number]) Pre-Anesthesia Assessment Patient Also Known As (AKA) LAYLA Patient Information Reviewed Via Phone Assessment Assessment Completed With Patient Primary Care Provider Yoan Dunn Seen Specialist in Last 12 Months Yes Specialist Seen Orthopedist Primary Language South Korean Preferred Language South Korean Hand Binder Stripper Required No Height 162.56 cm Weight 84.822 kg Body Mass Index (BMI) 32.1 Hearing Ability Normal Visual Assist Glasses Dentition Type Teeth, Natural Present Teeth, Missing Barriers to Learning None Other Aids No Hx Anesthesia Reactions No Hx Family Anesthesia Reaction No Hx Malignant Hyperthermia No Hx Blood Transfusions No Anesthesia Review Requested No Instructional Support Specialist No alcohol intake current alcohol intake frequency holidays/special occasions only Smoking Status Former smoker Tobacco type cigarettes how long ago did patient quit smoking Quit 2014, smoked x 45-50 years Substance Use Type does not use Pain Present Pain Reported Musculoskeletal Symptoms Back Pain Difficulty Walking History of Falling (Recent or History of Yes ) Patient is completely paralyzed or No completely immobile Mental Status Oriented to own ability Is patient on oxygen? No Does patient have ROMERO/SOB Yes: Occasional r/t Asthma Hx Sleep Apnea No Currently Taking a Beta Va No Can You Climb a Flight of Stairs Without Yes SOB Hx Chest Pain No Hx SOB Yes: Occasional r/t Asthma Hx Syncope or Dizziness No Anti-Coagulant Therapy No Has a Forest Biometrics Professor No Cardiac Testing No Hx Pacemaker/ICD No Pacemaker Rep Required? No Diet Type At Home Regular dysphagia No Genitourinary Symptoms Change in Urinary Stream Bladder Pattern Nocturia Retention Urgency Urinary Catheter Present No Hx Urinary Self Catheterization No Diabetes Yes: Pt checks blood sugar once a day HgbA1C 7.1 Date 04/28/19 Hx Drug Resistant Organism No Presence of External or Internal Medical Yes: Lumbar hardware Devices Have you traveled outside the [facility] in the last 30 days? Marital Status Lives With spouse Prior Living Arrangements House Number of Floors (Floors) One Floor Number of Stairs To Enter/Railing? 2 steps, railing present Support System Spouse Does the Patient Have Assistance After Yes Surgery Patient Discharge Plan Description Return Home Comment Pt advised 1-2 day length of stay per surgeon's office Feels Safe in Current Environment Yes Been Physically Hurt or Threatened By a No Person in Current Environment Do you have thoughts of harming yourself None or others? Are you currently considering suicide? No Do you have a plan to hurt yourself or No Plan others? Do You Have Any Spiritual Beliefs That No May Affect Your HC Choices? Do You Have Any Cultural Practices That No May Affect Your HC Choices? Spiritual Referral None Comment Religion Who Can We Speak to About Patient's Care Family, friends Identifying Code for Release of Patient Declines to issue Information Health Care Proxy/Next of Kin Keena () Health Care Proxy Emergency Contact Name Keena () Emergency Contact Advance Directives? No: Previously declined further information Advance Directives on File No Power of Controlled Area Checker No PAC Instructions Durable medical equipment Medications to take/avoid Nasal antibiotic No ETOH/petroleum product on skin DOS Post-op transportation Pre-op antibiotic Sensory aids Sturdy shoes/comfortable clothes Do not bring valuables and remove jewelry
--- NOTE | 2019-05-10 09:40 | PT.IPTN ---
Current Diagnoses Spinal stenosis, lumbar region without neurogenic claudication (05/08/19) Other mechanical complication of other internal orthopedic devices, implants and grafts, initial encounter (05/08/19) Surgery Performed Operation Date: 05/08/19 12:15 Actual Procedures p L3-4 TLIF, L4-s1 HWR and L3-s1 PSF - Lissy Calzada MD Physical Therapy Treatment Note M2 PT-IP Current Condition Start: 05/09/19 11:46 Freq: NEEDED Status: Discharge Protocol: Document 05/09/19 10:19 AB (Rec: 05/09/19 12:16 AB [id number]) Physical Therapy Current Condition Current Condition Evaluation Date 05/09/19 Treatment Diagnosis L3-4 fusion; L4S1 rev. lami; fusion; L3S1 instrument; difficulty in walking Onset Date 05/08/19 Precautions Lumbar Precautions Log Roll No Twisting Limit Bending Lifting Restriction of 10 lbs Gait Belt above Incisional Area M3 PT-IP Subjective Start: 05/09/19 11:46 Freq: NEEDED Status: Discharge Protocol: Document 05/10/19 09:15 CLB (Rec: 05/10/19 11:06 CLB [id number]) Subjective Physical Therapy Visit Type Type Treatment Note Visit Start Time 09:15 Visit Stop Time 09:40 Total Visit Minutes 25 Number of STARCH COOKER Visits 1 Physical Therapy Visit Comments Patient Comments pt agreeable to do PT Therapy Pain Assessment Pain When Pain Assessed At Rest Pain Present Pain Present Pain Reported Location Lower Back Intensity 3 Scale Used Numeric (1 - 10) Pain Management Techniques Apply Cold Timing of Activity with Medications M4 PT-IP Mobility and Gait Start: 05/09/19 11:46 Freq: NEEDED Status: Discharge Protocol: Document 05/10/19 09:15 CLB (Rec: 05/10/19 11:06 CLB [id number]) PT-Bed Mobility Assessment Rolling Type of Rolling Log Rolling Roll to Right Level of Assist Standby Assistance Supine to Sit Supine to Sit Standby Assistance Scooting Scooting to Edge of Bed Standby Assistance PT-Transfer Assessment Sit to and From Stand Sit to and from Stand Standby Assistance 1 Person Assistance Equipment Transfer Assistive Device Gait Belt Front Wheeled Walker Orthotic/Prosthetic Devices or Brace: No Transfers Transfer Destination Bed Chair Transfer Technique Stand Step Pivot Transfer Ability Level of Assist Standby Assistance Comments Mobility Comments Pt did well with log roll once head of bed was lowered. Gait Assessment Gait Gait Assistance Required: Standby Assistance Distance (Feet) 225 Able to Maintain Weight Bearing Status Yes During Gait Assistive Devices Assistive Device Gait Belt Front Wheeled Walker Orthotic/Prosthetic Devices or Brace: No Gait Deviations General Gait Pattern Decreased Stride Length Decreased Feet Clearance Factors Limiting Gait Function Factors Limiting Gait Function Decreased Activity Tolerance Decreased Strength Limited Range of Motion Pain Poor Safety Awareness Comments Gait Comments Pt ambulated ~225ft in vasquez with FWW/SBA with steady step through gait pattern. Stair Climbing Assessment Evaluation Level of Assist On Stairs Standby Assistance 1 Person Assistance Devices Stair Climbing Assistive Devices Right Railing Technique/Endurance Stair Climbing Direction Ascend and Descend Stair Climbing Technique Step to Step Number of Steps Climbed 3 Stair Climbing Set # Repetitions (reps) 1 Comments Stair Climbing Comments Pt denied CGA on steps but was able to climb stairs SBA. M5 PT-IP Objective Assessments Start: 05/09/19 11:46 Freq: NEEDED Status: Discharge Protocol: Document 05/09/19 10:19 AB (Rec: 05/09/19 12:16 AB [id number]) Orientation Orientation/Cognition Level of Alertness Alert Orientation Name Place Situation Language Function Ability No Deficits Noted Safety Awareness Decreased Safety Awareness Memory Description Short Term Impaired Gross Range of Motion Lower Extremity ROM Assessment Within Functional Limits Strength Lower Extremity Strength Assessment Bilaterally Impaired Comments Strength Comments LLE 4-/5 RLE 3+/5 Coordination Assessment Gross Coordination Gross Coordination WNL Sensation Assessment Sensation Gross Sensation Right LE Impaired Sensation Description Tingling Comments Sensation Comments c/o tingling on R toes Muscle Tone Muscle Tone WNL Yes M6 PT-IP Treatment Start: 05/09/19 11:46 Freq: NEEDED Status: Discharge Protocol: Document 05/10/19 09:15 CLB (Rec: 05/10/19 11:06 CLB [id number]) Physical Therapy Treatment Exercises Exercises Ankle Pumps Education Education Provided Precautions Safety Other Treatments Other Treatment Performed Pt recalled 3/3 back precautions. M7 PT-IP Assessment and Plan Start: 05/09/19 11:46 Freq: NEEDED Status: Discharge Protocol: Document 05/10/19 09:15 CLB (Rec: 05/10/19 11:06 CLB [id number]) PT Summary Assessment and Plan Summary Impairments Pain ROM Strength Balance Sensation Bed Mobility Transfers Gait Activity Tolerance Progress Towards Goals Progressing Toward Goals Assessment Summary Pt able to ambulate ~225ft in vasquez SBA, pt able to perform LR with flat bed with cues. Pt able to climb steps SBA. is able to assist pt at home. Pt seems able to d/c home with assistance when medically stable. Goals Bed Mobility Goal Independent Transfer Goal Independent Gait Goal Independent Gait Distance 200 Other Goals up/down 2 steps without rails usign SPC/LOGISTICS LEAD SBA Days to Meet Goals 5 Frequency of Treatment Frequency Of Treatment Twice a Day Treatment Plan Physical Therapy Treatment Plan Bed Mobility Training Transfer Training Gait Training Therapeutic Exercise Balance Retraining Post Op Education Discharge Planning Hot or Cold Pack Neuromuscular Re-ed Coordination Retraining Manual Therapy Recommendations To Nursing Amount of Assist Needed 1 Person Assist Discharge Recommendations PT Discharge Recommendations Home with Assistance
--- NOTE | 2019-05-10 10:11 | PM.DS.1 ---
History of Present Illness Date Patient Seen: 05/10/19 Time Patient Seen: 10:11 Chief complaint: [id number] Narrative: Patient is postop day 2 redo spinal instrumentation and fusion. He is doing very well. He has been up with physical therapy and done stairs. He feels ready to be discharged to home. 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 Hospital Course: The patient was admitted the hospital and underwent a revision with additional decompression of fusion of the lumbar spine. The patient progressed very well and was ready for discharge postop day 2. Status at Discharge Cognitive/behavioral status at discharge: oriented Functional status at discharge: uses cane/walker Overall status at discharge: patient is progressing back to baseline Time Spent with Patient Less than 30 minutes Exam Vital Signs (past 8 hours): - 05/10/19 05:35 05/10/19 05:43 05/10/19 08:05 Temperature 99.0 F Pulse Rate 93 H 91 H Respiratory Rate 18 18 Blood Pressure 151/54 H Pulse Oximetry 92 92 92 05/10/19 08:25 05/10/19 08:45 Temperature 98.1 F Pulse Rate 105 H Respiratory Rate 20 Blood Pressure 133/58 L Pulse Oximetry 91 96 Fraction of Inspired Oxygen 21 Oxygen Delivery Method Room Air Oxygen Flow Rate 0 Skin Other: There is just mild drainage on the dressing which was changed. Lower extremities are neurovascularly intact. There is expected swelling. Objective Labs Result Diagrams: 05/09/19 06:14 Discharge Plan Discharge Plan Patient Disposition: Home Discharge comment: Patient is progressing as expected after surgery. Discharged to home with standard postoperative plan. Follow-up in 2 weeks. Discharge Med Rec/Prescriptions Prescriptions: New hydromorphone [Dilaudid] 2 mg tablet 2 mg PO Q4-6H PRN (Reason: pain) Qty: 40 RF: 0 Continued albuterol sulfate [Proventil HFA] 90 mcg/actuation HFA aerosol inhaler 1 puff INHALATION QID PRN PRN (Reason: shortness of breath) Qty: 3 RF: 5 Glucose: Home Monitor Q DAY Qty: 1 RF: 0 Test Strips - Freestyle BID Qty: 100 RF: 3 metformin 1,000 mg tablet 1,000 mg PO BID Qty: 180 RF: 1 omeprazole 20 mg tablet,delayed release (DR/EC) 20 mg PO QDAY Qty: 90 RF: 1 Test Strips - Freestyle See Rx Instructions .ROUTE BID Qty: 100 RF: 3 docusate calcium 240 mg capsule 240 mg PO DAILY Qty: 90 RF: 1 ipratropium-albuterol 0.5 mg-3 mg(2.5 mg base)/3 mL solution for nebulization 3 ml INHALATION Q8H Qty: 90 RF: 5 lisinopril [Zestril] 40 mg tablet 40 mg PO BEDTIME RF: 0 loratadine 10 mg tablet 10 mg PO QDAYP PRN (Reason: Allergies) RF: 0 acetaminophen 325 mg Tablet 650 mg PO Q6HR PRN (Reason: Pain, Mild (1-3)) Qty: 0 RF: 0 furosemide 20 mg Tablet 20 mg PO DAILY PRN (Reason: Edema) RF: 0 Follow up/Referrals: Yoan Dunn MD [Primary Care Provider] - Provider Discharge Instructions Diet: Regular Activity: No bending or lifted. Skin/Wound/Dressing Care Report to your healthcare provider any signs of infection, such as:: chills, fever, increased pain, unusual drainage and unusual redness Dressing: May remove dressing in 2-3 days. May shower over incision but no bathing. Visit Report/Discharge Packet Instructions: How to Prevent Falls, DI for Postoperative Pain, DI for Transforaminal Lumbar Interbody Fusion Stand Alone Forms: Surgery Discharge Visit Report Forms: Stroke Signs & Symptoms Discharge Data Primary Care Provider: Yoan Dunn Attending Provider: Lissy Calzada Admit Date/Time: 05/08/19 10:32
--- NOTE | 2019-05-10 10:42 | PC.NURSE ---
Day Shift- Pain controlled 3-01/21 aching to lower back with prn Dilaudid. Pt wanted only 1mg this AM. Pt states has a pill splitter at home. Discharge summary packet reviewed with pt and his at bedside. Prescription for Dilaudid given to pt. All questions answered. Pt aware to call Dr. Calzada's office with any concerns. Pt's stated they have follow up appointments already made for beginning of may. States has all belongings. Pt left unit in no distress at 1038 via wheelchair with PRINTING PRESSMAN escort and his at side to drive pt home.
== END 2019-05-10 10:38 | disposition home or self-care (01) | DRG 454 ==
PROVIDERS: Admitting Provider Orthopaedic Surgery Orthopaedic Surgery of the Spine; Family Provider Family Medicine; PCP Family Medicine; Visit Provider Orthopaedic Surgery Orthopaedic Surgery of the Spine
PROC: 0SG00AJ Fusion of Lumbar Vertebral Joint with Interbody Fusion Device, Posterior Approach, Anterior Column, Open Approach (ICD-10-PCS; principal; 2019-05-08 12:15)
DX: T84.038A Mechanical loosening of other internal prosthetic joint, initial encounter (principal); M96.0 Pseudarthrosis after fusion or arthrodesis; M48.061 Spinal stenosis, lumbar region without neurogenic claudication; M48.07 Spinal stenosis, lumbosacral region; I10 Essential (primary) hypertension; E11.9 Type 2 diabetes mellitus without complications; J44.9 Chronic obstructive pulmonary disease, unspecified; K21.9 Gastro-esophageal reflux disease without esophagitis; Z87.891 Personal history of nicotine dependence; Z79.84 Long term (current) use of oral hypoglycemic drugs
CPT/HCPCS: 36415; 72100; 76000; 82962; 85014; 85018; 94640; 94760; 97116; 97161; 97165; 97530; 97535; C1776; C9290; J0330; J0690; J1100; J1170; J2250; J2405; J2704; J3010; J7613

== ENCOUNTER → 2021-10-03 13:36 | Outpatient (CLI) | payer MEDICARE, OTHER, SELFPAY ==
[2021-09-29 11:54] VITALS: BMI 32.1
[2021-10-03 13:58] LABS: Add Manual Diff / Slide Review NO; Basophils Absolute Auto 0 /uL (0-100); Basophils Percent Auto 0.5 % (0-2); Eosinophils Absolute Auto 300 /uL (0-450); Eosinophils Percent Auto 3.5 % (2-4); Hematocrit 31.1 % (41-53); Hemoglobin 9.9 g/dL (13.5-17.5); Lymphocytes Absolute Auto 1200 /uL (1100-4500); Lymphocytes Percent Auto 12.4 % (25-40); Mean Corpuscular HGB Conc 31.7 % (30-36); Mean Corpuscular Hemoglobin 26.2 PG (26-34); Mean Corpuscular Volume 82.6 fL (80-100); Monocytes Absolute Auto 700 /uL (0-900); Monocytes Percent Auto 7.1 % (3-14); Neutrophils Absolute Auto 7300 /uL (1500-7000); Neutrophils Percent Auto 76.5 % (50-75); Platelet Count 284 X10^3/uL (150-400); Red Blood Cell Count 3.77 X10^6/uL (4.5-5.9); Red Cell Distribution Width 19.5 % (11.6-14.8); White Blood Cell Count 9.5 X10^3/uL (4.5-11.0)
== END ==
PROVIDERS: Family Provider Family Medicine; PCP Family Medicine; Referring Provider Surgery; Visit Provider Surgery
DX: D64.9 Anemia, unspecified (principal)
CPT/HCPCS: 36415; 85025

== ENCOUNTER → 2021-10-03 13:37 | Outpatient (CLI) | payer MEDICARE, OTHER, SELFPAY ==
[2021-09-29 11:54] VITALS: BMI 32.1
[2021-10-03 14:31] LABS: COVID19 -Nasal RAPID Negative (Negative)
== END ==
PROVIDERS: Family Provider Family Medicine; PCP Student in an Organized Health Care Education/Training Program; Visit Provider Surgery
DX: Z01.812 Encounter for preprocedural laboratory examination (principal); Z20.822 Contact with and (suspected) exposure to COVID-19; D64.9 Anemia, unspecified
CPT/HCPCS: 36415; 85025; 87635; 99213

== ENCOUNTER 2021-10-05 06:27 | Day surgery (SDC) | payer MEDICARE, OTHER, SELFPAY ==
[2021-09-29 11:54] VITALS: BMI 32.1
[2021-10-05] VITALS (7 sets, daily range): BP systolic 127–169; BP diastolic 48–94; PULSE 87–106; RESP 16–22; TEMP 36.6–37.1; O2SAT 91–100; BMI 33.3
--- NOTE | 2021-10-05 | PATH_ITS ---
[facility] Accession Number: [id number] . 01 Material submitted: . PART A: stomach - ANTRUM PART B: stomach - ANTRUM BODY PART C: sigmoid colon - SIGMOID COLON POLYP X3 . 02 Diagnosis: A. Antrum, Biopsy: Gastric antral mucosa with reactive gastropathy. Negative for Helicobacter organisms by immunohistochemistry. Negative for intestinal metaplasia. Negative for dysplasia or malignancy. . B. Gastric Body, Biopsy: Gastric body mucosa with no diagnostic abnormality. No evidence of Helicobacter organisms on H/E stain. Negative for intestinal metaplasia. Negative for dysplasia and malignancy. . C. Sigmoid Colon Polyps, Biopsies: Tubular adenoma x1. Hyperplastic polyp x2. [facility] 10/12/2021 1501 Local . 02 Electronically signed: . Jose Noble MD, PhD, Pathologist NPI- [id number] . 01 Gross description: . A. Received in formalin, labeled antrum biopsy, are five fragments of benítez, soft tissue measuring 0.5 x 0.4 x 0.2 cm to 0.3 x 0.2 x 0.2 cm. All five fragments are entirely submitted in cassette A1. B. Received in formalin, labeled antrum body biopsy, are two fragments of benítez, soft tissue measuring 0.3 x 0.2 x 0.2 cm to 0.3 x 0.2 x 0.1 cm. Both fragments are entirely submitted in cassette B1. C. Received in formalin, labeled sigmoid colon polyp, are three fragments of benítez, soft tissue measuring 0.8 x 0.6 x 0.2 cm to 0.4 x 0.4 x 0.1 cm. One fragment has a discernable resection margin. The fragment with the discernable resection margin is inked blue, bisected, and entirely submitted in cassette C1. The other two fragments are also submitted in cassette C1. Cassette C1 contains a total of four pieces. ([id number]) /FRR 10/07/2021 [facility] Local . 02 Microscopic: . A. An immunohistochemical stain was performed to evaluate for Helicobacter organisms and is negative. The control stain showed appropriate reactivity. . * This test was developed and its performance characteristics determined by [facility]. It has not been cleared or approved by the U.S. Food and Drug Administration. The FDA has determined that such clearance or approval is not necessary. This test is used for clinical purposes. It should not be regarded as investigational or for research. . 02 Pathologist provided ICD-10: D64.9, K31.9, D12.5 . 02 CPT . 560304, 316277, 607570, D81475 Performed at: 01 [facility] [address] [id number] MD Feliz Becker MD Phone: [phone] Performed at: 02 [facility] [address] [place] [id number] MD Shannen Franklin MD Phone: [phone]
[2021-10-05] MEDS: LACTATED RINGERS 1,000 ML 42 ML IV (07:34)
--- NOTE | 2021-10-05 07:45 | PM.PREOP ---
Pre-operative Note COVID-19 COVID-19 status: Negative Result date/Date tested (Pos, Neg/Pending): 10/03/21 Interval Note History & Physical reviewed/Exam performed by Physician: Yes Changes to H&P: No ASA Class (for procedural sedation): III
--- NOTE | 2021-10-05 09:02 | PM.OP.EC ---
Operative Date/Time/Diagnoses Date of procedure: 10/05/21 Time of procedure: 09:02 Pre-op diagnosis: GI bleed Post-op diagnosis: same Procedure & Clinicians Study performed: Esophagogastroduodenoscopy and colonoscopy Same procedure as scheduled: Yes Indications: Recent GI bleed Surgeon: Marlon Quintero Procedure Notes SCOAP/Timeout: He S Procedure in detail: Procedure in detail: A timeout was performed. Bite blocked was placed. Patient was positioned in a left lateral decubitus position. Anesthesia was administered. Once the patient was sedated the endoscope was inserted through the bite block and passed through the esophagus and stomach and into the duodenum. There were multiple small ulcerations in the antrum. There is no active bleeding. The duodenum and duodenal bulb appeared normal. Multiple random biopsies were taken from the antrum and the body of the stomach. There were no other abnormalities noted. The endoscope was retroflexed and no hiatal hernia was noted. The scope was withdrawn into the esophagus and no other abnormalities were noted. The Z-line was normal. The remainder of the esophagus was normal. The scope was withdrawn. Next we repositioned the patient for a colonoscopy. A digital rectal exam was performed and was normal. The colonoscope was inserted and advanced to the cecum. The appendiceal orifice was identified and photographed. The scope was slowly withdrawn over greater than 6 minutes. There were 3 polyps in the sigmoid colon the largest of which was about a cm in the mid sigmoid colon. The most proximal of the 3 polyps was removed with cold snare, the 2nd and 3rd polyps were removed with hot snare. The scope was retroflexed in the rectum and no abnormalities were noted. The scope was straightened and withdrawn. EBL: 5 mL Findings: Antral ulcers and 3 sigmoid polyps Scope withdrawal time: 18 Sedation minutes: 47 Findings: gastric ulcer and polyp Post-procedure Recommendations: Will call with biopsy results
[2021-10-05] MEDS: ALBUTEROL 2.5 MG/3 ML NEB (ADULT) INH (09:09)
--- NOTE | 2021-10-05 09:38 | SUR.PHASEI ---
0900 wheezy and tight lungs. Albuterol treatment given, lungs improved after
== END 2021-10-05 10:02 | disposition home or self-care (01) ==
PROVIDERS: Family Provider Family Medicine; PCP Family Medicine; Referring Provider Surgery; Visit Provider Surgery
PROC: 0DJ08ZZ Inspection of Upper Intestinal Tract, Via Natural or Artificial Opening Endoscopic (ICD-10-PCS; CPT 43235; principal; 2021-10-05 07:45)
PROC: 0DJD8ZZ Inspection of Lower Intestinal Tract, Via Natural or Artificial Opening Endoscopic (ICD-10-PCS; CPT 45378; 2021-10-05 07:45)
DX: K62.5 Hemorrhage of anus and rectum (principal); D64.9 Anemia, unspecified; K25.9 Gastric ulcer, unspecified as acute or chronic, without hemorrhage or perforation; J44.9 Chronic obstructive pulmonary disease, unspecified; K21.9 Gastro-esophageal reflux disease without esophagitis; I10 Essential (primary) hypertension; E11.9 Type 2 diabetes mellitus without complications; Z79.84 Long term (current) use of oral hypoglycemic drugs; D12.5 Benign neoplasm of sigmoid colon; K31.9 Disease of stomach and duodenum, unspecified
CPT/HCPCS: 45385; 43239; 99152; 99153; J2704; J7613